=== PATIENT | male | born 1980 | race Caucasian/White ===

== ENCOUNTER 2024-06-26 18:13 | Inpatient (IN) | payer MEDICARE, SELFPAY ==
[2024-06-26] VITALS (9 sets, daily range): BP systolic 119–153; BP diastolic 82–104; BMI 36.4; BMI 38.0
--- NOTE | 2024-06-26 14:38 | ED.GENMED ---
ED Provider Triage
<Jeovany Roman PA-C - Last Filed: 06/26/24 14:39>
-
Patient seen by provider in Triage?: Seen in Triage
Attestation: A medical screening examination has been initiated by a qualified medical provider. Based on the assessment performed at this time, it has been determined that an emergent medical condition may exist and the patient has been informed
that further medical evaluation and possible additional diagnostic testing may be needed.
HPI: 43-year-old male presents in referral from family doctor for evaluation of abdominal pain and jaundice. He admits to heavy alcohol use for years stopped drinking 2 to 3 days ago but notes yellow discoloration of the skin starting about a week
ago. He notes diffuse abdominal pain with vomiting. No prior history of alcohol withdrawal.
Patient is jaundiced at triage with tachycardia and hypertension. Concern for cirrhosis versus liver failure versus alcohol withdrawal
Start with labs including CBC CMP lipase PT/INR. Given diffuse abdominal pain and tenderness on exam CT ordered with IV contrast
GENERAL: Alert , in no apparent distress
EYE: No visual abnormalities.
NECK: Trachea midline
ENT: No visible abnormalities.
LUNGS: No acute respiratory distress
NEUROLOGICAL: Alert and oriented
SKIN: Skin intact. No visible changes.
MUSCULOSKELETAL: Moving extremities normally
PSYCH: Normal and appropriate interaction.
This is a medical evaluation conducted in person to initiate diagnostic evaluation and provide initial therapeutics. Please see further documentation by the treating clinician.
History of Present Illness
<Jeovany Roman PA-C - Last Filed: 06/26/24 14:39>
General
Chief Complaint: Abdominal Symptoms
Time Seen by Provider: 06/26/24 15:47
<Masoud Parr MD - Last Filed: 06/26/24 19:09>
General
Source: patient
Exam Limitations: none
History of Present Illness
History of Present Illness:
43-year-old male long history of EtOH use. Drinks 2 bottles of hard liquor per week. Last drink 2 days ago. Complaining of upper abdominal pain nausea vomiting that started about a week ago. Started noticing he was jaundiced. No fever no back
pain no other complaints. Symptoms are moderate in nature
Past History
<Jeovany Roman PA-C - Last Filed: 06/26/24 14:39>
Past History
ED Past Medical History: Psychiatric (suicide attempt 2022) and Other (Stiff person syndrome)
ED Past Surgical History: None
Social History
Tobacco: Non-smoker
Alcohol: Daily
Personal: Single
Living: with family
Employment: Not employed
Family History
Family History: Negative Diabetes, Hypertension or CAD
Review of Systems
<Masoud Parr MD - Last Filed: 06/26/24 19:09>
Review of Systems
All Other Systems: Not applicable
Constitutional: Denies fever or chills
Respiratory: Reports no symptoms
Cardiac: Reports no symptoms
Phy Exam
<Masoud Parr MD - Last Filed: 06/26/24 19:09>
Physical Exam
Physical Exam:
GENERAL: Alert and oriented.. Slightly slow to answer questions. Appears moderately ill.
EYE: Orbits normal. Icteric
NECK: Supple
ENT: Pharynx without erythema
CARDIAC: Mildly tachycardic and regular no murmur
LUNGS: Clear breath sounds,normal
ABDOMEN: Soft, epigastric and right upper quadrant tenderness. No rebound or guarding no mass or hernia. Increased liver edge.
NEUROLOGICAL: Alert and oriented , grossly non-focal
SKIN: Warm and dry, jaundice. No petechia or purpura
MUSCULOSKELETAL: No edema,no deformity.Good color
PSYCH: Normal and appropriate interaction.
Course
<Jeovany Roman PA-C - Last Filed: 06/26/24 14:39>
Orders/Labs/Results
Orders:
Orders
06/26/24 14:50
Alcohol Urgent
Complete Blood Count/With Diff Urgent
Comprehensive Metabolic Panel Urgent
Lipase Urgent
PTT Urgent
Prothrombin Time Urgent
06/26/24 15:56
Add On- LAB Urgent
Tests Added?: etoh level
CT Abd/Pel (IV only)-DH only Urgent
Comment:
Reason For Exam: Upper abdominal pain. Elevated LFTs
06/26/24 16:19
Ammonia Urgent
06/26/24 17:00
0.9% Sodium Chloride 1000 ml [Nss] 1,000 ml Mvi, Adult [Multivitamin] 10 ml Thiamine Injection 100 mg IV Wide Open mls/hr
06/26/24 17:09
Urine Drug Abuse Screen Routine
Date Specimen was Collected: 06/26/24
Time Specimen was Collected: 17:11
06/26/24 17:45
Admit/Transfer Patient As Directed
Co-Sign Provider:
Level of Care: Inpatient admission
Assign to:: Medical/Surgical
Physician / Group: Priscilla Leiva - hospitalists
Diagnosis: Acute alcoholic hepatitis, elevated LFTs, jaundice
Reason for Hospitalization: Acute alcoholic hepatitis, elevated LFTs, jaundice - CT imaging, possible
paracentesis
Expected length of stay greater than two midnights?: Yes
ELOS- Estimated Length of Stay in days: 3
I certify the patient meets the requirements for IP care: Yes
PRN Pain Medication Management As Directed
May give lesser potent ordered pain med per pt: Yes
preference::
Protocol:: Medication orders for pain may be administered in a
manner that supports deferring to patient preference
when the pt is:
- Requesting an ordered lesser potent pain medication.
Least to most potent pain medications are defined
as: acetaminophen < NSAID < tramadol < opioids
(morphine, oxycodone, hydromorphone).
- Requesting a lesser dose of the same medication IF
ORDERED.
- Requesting a less intrusive route of administration
if both routes are prescribed by the provider (PO <
IV).
06/26/24 17:46
Code Status As Directed
Resuscitation Status: Full Code
06/27/24 06:00
Complete Blood Count/No Diff IN AM
Comprehensive Metabolic Panel IN AM
Prothrombin Time IN AM
Abnormal Lab Results
06/26/24
14:50
RBC 3.17 L 10^6/uL
(4.70-6.10)
Hgb 11.0 L g/dL
(13.0-18.0)
Hct 33.8 L %
(39.0-52.0)
MCV 106.6 H fL
(80.0-94.0)
MCH 34.7 H pg
(27.0-31.0)
MCHC 32.5 L g/dL
(33.0-37.0)
RDW 21.7 H %
(11.5-14.5)
Absolute Lymphs (auto) 0.9 L 10^3/uL
(1.2-3.4)
Absolute Monos (auto) 0.7 H 10^3/uL
(0.1-0.6)
Lymphocytes % 14.4 L %
(20.5-51.1)
Monocytes % 10.9 H %
(1.7-9.3)
PT 14.9 H Sec
(11.4-14.6)
BUN 6 L mg/dl
(9-20)
Creatinine 0.5 L mg/dL
(0.7-1.3)
Glucose 117 H mg/dl
(70-99)
Calcium 8.3 L mg/dl
(8.4-10.2)
Total Bilirubin 12.6 H mg/dl
(0.2-1.3)
AST 566 H* U/L
(17-59)
ALT 153 H U/L
(0-50)
Alkaline Phosphatase 548 H U/L
(38-126)
Total Protein 9.0 H g/dl
(6.3-8.2)
Lipase 328 H U/L
(23-300)
06/26/24 14:50
06/26/24 14:50
Vital Signs
Initial and Last Documented VS:
Initial Vital Signs
Temp Pulse Resp BP Pulse Ox
98.5 F 111 18 153/104 97
06/26/24 14:35 06/26/24 14:35 06/26/24 14:35 06/26/24 14:35 06/26/24 14:35
Last Documented Vital Signs
Temp Pulse Resp BP Pulse Ox
98.5 F 91 24 137/89 96
06/26/24 14:35 06/26/24 18:15 06/26/24 18:15 06/26/24 18:00 06/26/24 18:15
<Masoud Parr MD - Last Filed: 06/26/24 19:09>
Orders/Labs/Results
Orders:
Orders
06/26/24 14:50
Alcohol Urgent
Complete Blood Count/With Diff Urgent
Comprehensive Metabolic Panel Urgent
Lipase Urgent
PTT Urgent
Prothrombin Time Urgent
06/26/24 15:56
Add On- LAB Urgent
Tests Added?: etoh level
CT Abd/Pel (IV only)-DH only Urgent
Comment:
Reason For Exam: Upper abdominal pain. Elevated LFTs
06/26/24 16:19
Ammonia Urgent
06/26/24 17:00
0.9% Sodium Chloride 1000 ml [Nss] 1,000 ml Mvi, Adult [Multivitamin] 10 ml Thiamine Injection 100 mg IV Wide Open mls/hr
06/26/24 17:09
Urine Drug Abuse Screen Routine
Date Specimen was Collected: 06/26/24
Time Specimen was Collected: 17:11
06/26/24 17:45
Admit/Transfer Patient As Directed
Co-Sign Provider:
Level of Care: Inpatient admission
Assign to:: Medical/Surgical
Physician / Group: Priscilla Leiva - hospitalists
Diagnosis: Acute alcoholic hepatitis, elevated LFTs, jaundice
Reason for Hospitalization: Acute alcoholic hepatitis, elevated LFTs, jaundice - CT imaging, possible
paracentesis
Expected length of stay greater than two midnights?: Yes
ELOS- Estimated Length of Stay in days: 3
I certify the patient meets the requirements for IP care: Yes
PRN Pain Medication Management As Directed
May give lesser potent ordered pain med per pt: Yes
preference::
Protocol:: Medication orders for pain may be administered in a
manner that supports deferring to patient preference
when the pt is:
- Requesting an ordered lesser potent pain medication.
Least to most potent pain medications are defined
as: acetaminophen < NSAID < tramadol < opioids
(morphine, oxycodone, hydromorphone).
- Requesting a lesser dose of the same medication IF
ORDERED.
- Requesting a less intrusive route of administration
if both routes are prescribed by the provider (PO <
IV).
06/26/24 17:46
Code Status As Directed
Resuscitation Status: Full Code
06/27/24 06:00
Complete Blood Count/No Diff IN AM
Comprehensive Metabolic Panel IN AM
Prothrombin Time IN AM
Abnormal Lab Results
06/26/24
14:50
RBC 3.17 L 10^6/uL
(4.70-6.10)
Hgb 11.0 L g/dL
(13.0-18.0)
Hct 33.8 L %
(39.0-52.0)
MCV 106.6 H fL
(80.0-94.0)
MCH 34.7 H pg
(27.0-31.0)
MCHC 32.5 L g/dL
(33.0-37.0)
RDW 21.7 H %
(11.5-14.5)
Absolute Lymphs (auto) 0.9 L 10^3/uL
(1.2-3.4)
Absolute Monos (auto) 0.7 H 10^3/uL
(0.1-0.6)
Lymphocytes % 14.4 L %
(20.5-51.1)
Monocytes % 10.9 H %
(1.7-9.3)
PT 14.9 H Sec
(11.4-14.6)
BUN 6 L mg/dl
(9-20)
Creatinine 0.5 L mg/dL
(0.7-1.3)
Glucose 117 H mg/dl
(70-99)
Calcium 8.3 L mg/dl
(8.4-10.2)
Total Bilirubin 12.6 H mg/dl
(0.2-1.3)
AST 566 H* U/L
(17-59)
ALT 153 H U/L
(0-50)
Alkaline Phosphatase 548 H U/L
(38-126)
Total Protein 9.0 H g/dl
(6.3-8.2)
Lipase 328 H U/L
(23-300)
06/26/24 14:50
06/26/24 14:50
Vital Signs
Initial and Last Documented VS:
Initial Vital Signs
Temp Pulse Resp BP Pulse Ox
98.5 F 111 18 153/104 97
06/26/24 14:35 06/26/24 14:35 06/26/24 14:35 06/26/24 14:35 06/26/24 14:35
Last Documented Vital Signs
Temp Pulse Resp BP Pulse Ox
98.5 F 91 24 137/89 96
06/26/24 14:35 06/26/24 18:15 06/26/24 18:15 06/26/24 18:00 06/26/24 18:15
<Masoud Parr MD - Last Filed: 06/26/24 19:09>
MDM/Problems Addressed
Differential Diagnosis Includes:
Patient with hepatitis/jaundice. Likely related to alcohol use although would consider common duct stone neoplasm cholangitis. Workup in progress. GI and hospitalist contacted
<Masoud Parr MD - Last Filed: 06/26/24 19:09>
*Radiology
Radiology exam reviewed: radiology read reviewed (Possible cholecystitis)
*Pulse Oximetry
Patient hypoxic: no
*Critical Care Note
Total Time (30-74mins, 75-104mins- exclusive of procedures): Not Applicable
Data Reviewed
Review of Other/Old Records Reveals: Labs, Records and Testing
ED Attending Note
<Jeovany Roman PA-C - Last Filed: 06/26/24 14:39>
-
Portions of this chart may have been created with voice recognition software.� Occasional wrong word or��sound alike� substitutions may have occurred due to the inherent limitations of voice recognition software.
Discharge Plan
Departure
Patient Disposition: Admit
Date of Disposition: 06/26/24
Time of Disposition: 16:02
Presentation/result/management discussed w/ accepting MD/DO: Gastroenterology
Discharge Problem:
Possible acute cholecystitis/cholangitis, History of chronic alcohol use
Interventions
Interventions:
*Risk Screen - Suicide Last Done: 06/26/24 14:35
*General Assessment Last Done: 06/26/24 15:53
*Neglect/Abuse Screening Last Done: 06/26/24 14:35
ZB-Xbgsbe-[id number] Assessment Last Done: 06/26/24 15:53
[2024-06-26 15:05] LABS: % Basophils 0.5 % (0-2); % Eosinophils 0.2 % (0-6); % Immature Granulocytes 0.5 % (0-0.5); % Lymphocytes 14.4 % (20.5-51.1); % Monocytes 10.9 % (1.7-9.3); % Neutrophils 73.5 % (42.2-75.2); Absolute Lymphocytes 0.9 10^3/uL (1.2-3.4); Absolute Monocytes 0.7 10^3/uL (0.1-0.6); Absolute Neutrophils 4.8 10^3/uL (1.4-6.5); Hematocrit 33.8 % (39.0-52.0); Mean Corp Hgb Conc. 32.5 g/dL (33.0-37.0); Mean Corpuscular Hgb 34.7 pg (27.0-31.0); Mean Corpuscular Volume 106.6 fL (80.0-94.0); Mean Platelet Volume 10.3 fL (7.4-10.4); Nucleated Red Blood Cells % 0 % (-); Platelet Count 193 10^3/uL (130-400); Red Blood Cell Count 3.17 10^6/uL (4.70-6.10); Red Cell Dist. Width 21.7 % (11.5-14.5); White Blood Cell Count 6.5 10^3/uL (4.8-10.8)
[2024-06-26 15:15] LABS: INR 1.14; PT 14.9 Sec (11.4-14.6)
[2024-06-26 15:16] LABS: APTT 34.5 Sec (23.4-35.0)
[2024-06-26 15:20] LABS: ALT (SGPT) 153 U/L (0-50); AST (SGOT) 566 U/L (17-59); Albumin 3.7 g/dl (3.5-5.0); Alkaline Phosphatase 548 U/L (38-126); Blood Urea Nitrogen 6 mg/dl (9-20); Calcium 8.3 mg/dl (8.4-10.2); Carbon Dioxide 23 mmol/L (22-30); Chloride 104 mmol/L (98-107); Glucose 117 mg/dl (70-99); Lipase 328 U/L (23-300); Potassium 4.2 mmol/L (3.5-5.1); Sodium 139 mmol/L (135-145); Total Bilirubin 12.6 mg/dl (0.2-1.3); eGFR > 60.00
--- NOTE | 2024-06-26 16:30 | CON.GI ---
Addendum entered and electronically signed by Karolina Corrales DO 06/26/24 17:47:
Patient seen and examined independently of HARRIETT. I agree with her note with my additions below
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 Patient states on Wednesday he started feeling diffuse abdominal cramping and is mildly tender in the epigastric
area, some mild nausea no vomiting. He does have chronic diarrhea and moves his bowels roughly 4 times a day without any blood. No prior GI workup and has never seen GI.
He does admit to being an alcoholic. He denies any prior DUIs or rehab for alcohol. On admission he is jaundice with a total bilirubin of 12.6, AST 566, ALT 153, alkaline phosphatase 548, lipase 328, platelets 193, hemoglobin 11.
He is tender in the epigastric area. Denies ever having GI bleeding or withdrawal. No prior ascites or paracentesis. Was never told he had any liver disease. No family history of liver disease. New medication is Lyrica that was started 3 weeks
ago.
# Jaundice with some abdominal pain and mixed cholestatic and hepatocellular injury with an elevated total bilirubin of 12.6
--- Biliary pathology versus alcoholic hepatitis versus other
--His alkaline phosphatase is pretty elevated, which is less characteristic of alcoholic hepatitis
-- No fevers or chills, no leukocytosis
-- Need to rule out obstructive jaundice with imaging, a CT has been ordered which could help with looking at his pancreas as well but often times ultrasound can be more sensitive for the biliary tree
-- Lipase is not 3 times normal, mildly elevated at 300. No prior pancreatitis
--Patient's DF is low with no role of any steroids and biliary obstruction needs to be ruled out first
# Alcohol abuse -discussed alcohol cessation with patient and his mother. No family history of liver disease
--Good nutrition as long as no biliary source was found
--Monitor for DTs
--Thiamine folate, once daily PPI
Addendum entered and electronically signed by HARRIETT Mcclellan 06/26/24 17:37:
with low DF no role for steroids cont to trend labs
Original Note:
Consultation
-
Date/Time Consultation Requested: 06/26/24- 1600
Date/Time Consultation Performed: 06/26/24 1630
Requesting Provider: Masoud Parr MD
Performing Provider: HARRIETT Zhu, Karolina Corrales DO
Reason for Consultation: jaundice
Medical History
Chief Complaint / HPI
Chief Complaint: jaundice
History of Present Illness:
Pt is a 43yo with hx ETOH abuse(current use 2-3 bottle wine/whiskey weekly for several years ), depression, stiff man syndrome, prior suicide attempt, [place] arrest with [place] presents to ER with upper abdominal pain with nausea,vomiting and
jaundice. On admission noted with hbg 11 with MCV 106.6, Platelets 193, INR 1.14, bili 12.6, AST 566, ALT 153, alk phos 548, lipase 328. CT pending.
In review with patient noted with onset of jaundice about 1 week ago. He also complaints of diffuse abdominal pain with some inability to eat. He denies dysphagia, GERD, hematemesis, constipation or rectal bleeding. He does admits to chronic
diarrhea. No hx EGD or colonoscopy in past. + occasional NSAID use. No hx hepatitis, prior liver problems, old tattoos, or IVDA. Admits to new medication with Pregalin started about 3 weeks ago.
Past Medical History
Past Medical History: Arrhythmias ([place] with [place] ), Psychiatric (suicide attempt, stiff person syndrome, depression) and Other (ETOH abuse)
Social History
Tobacco: Former Smoker (quit 2011 )
Alcohol: Daily (2-3 bottle weekly wine/whiskey )
Drug: Marijuana (occasional )
Living: Alone
Employment: Disabled
Family History
Family History: Other (family hx alcoholism in multiple family members )
Allergies / Home Medications
Allergy/AdvReac Type Severity Reaction Status Date / Time
No Known Allergies Allergy Verified 09/20/18 08:44
�Medication �Instructions �Recorded
immune glob,gamma (IgG) 10 50 g IV .[id number] 08/21/22
%-gly-IgA over 50 mcg/mL injection Neurological Condition
solution (Gammagard Liquid)
diazepam 5 mg tablet 5 mg PO QID PRN leg spasms 06/26/24
pregabalin 75 mg capsule 75 mg PO DAILY 06/26/24
Review of Systems
-
History Source: Patient and Family (mother at bedside )
Constitutional: Reports Weight Gain (few lbs ) and Other (new onset jaundice )
Respiratory: Reports Trouble Breathing (at times )
Cardiac: Reports No Symptoms
Abdomen/GI: Reports Abdominal Pain, Nausea, Vomiting and Diarrhea (chronic )
: Reports No Symptoms
Musculoskeletal: Reports No Symptoms
Skin: Reports No Symptoms
Neurological: Reports Weakness
Endocrine: Reports No Symptoms
Hematologic/Lymphatic: Reports No Symptoms
Vital Signs
Temp Pulse Resp BP Pulse Ox
98.5 F 104 18 137/91 97
06/26/24 14:35 06/26/24 16:00 06/26/24 16:00 06/26/24 16:00 06/26/24 16:00
Physical Exam
Exam
General: Other (some distress with abdominalpain )
HEENT: Other (jaundice )
Respiratory: Clear
Cardiac: Other (tachy)
GI: Soft, Tender (diffuse ) and Distended
Musculoskeletal: No Clubbing and No Cyanosis
Skin: Warm and Dry
Neuro: Awake, Alert and AO x 3
Psych: Calm
Results
WBC 6.5 10^3/uL (4.8-10.8) 06/26/24 14:50
Hgb 11.0 g/dL (13.0-18.0) L 06/26/24 14:50
Hct 33.8 % (39.0-52.0) L 06/26/24 14:50
MCV 106.6 fL (80.0-94.0) H 06/26/24 14:50
Plt Count 193 10^3/uL (130-400) 06/26/24 14:50
Absolute Neuts (auto) 4.8 10^3/uL (1.4-6.5) 06/26/24 14:50
PT 14.9 Sec (11.4-14.6) H 06/26/24 14:50
INR 1.14 06/26/24 14:50
APTT 34.5 Sec (23.4-35.0) 06/26/24 14:50
Sodium 139 mmol/L (135-145) 06/26/24 14:50
Potassium 4.2 mmol/L (3.5-5.1) 06/26/24 14:50
Chloride 104 mmol/L (98-107) 06/26/24 14:50
Carbon Dioxide 23 mmol/L (22-30) 06/26/24 14:50
BUN 6 mg/dl (9-20) L 06/26/24 14:50
Creatinine 0.5 mg/dL (0.7-1.3) L 06/26/24 14:50
Calcium 8.3 mg/dl (8.4-10.2) L 06/26/24 14:50
Total Bilirubin 12.6 mg/dl (0.2-1.3) H 06/26/24 14:50
AST 566 U/L (17-59) H* 06/26/24 14:50
ALT 153 U/L (0-50) H 06/26/24 14:50
Alkaline Phosphatase 548 U/L (38-126) H 06/26/24 14:50
Lipase 328 U/L (23-300) H 06/26/24 14:50
Diagnostic Image Results:
2/3 CT pending
Prior GI Procedures:
EGD: none
Colonoscopy: none
Assessment / Plan
-
Pt is a 43yo with hx ETOH abuse(current use 2-3 bottle wine/whiskey weekly for several years ), depression, stiff man syndrome, prior suicide attempt, [place] arrest with Vim[place] overdose presents to ER with upper abdominal pain with nausea,vomiting and
jaundice. On admission noted with hbg 11 with MCV 106.6, Platelets 193, INR 1.14, bili 12.6, AST 566, ALT 153, alk phos 548, lipase 328. .He does admits to chronic diarrhea. No hx EGD or colonoscopy in past. + occasional NSAID use. No hx
hepatitis, prior liver problems, old tattoos, or IVDA. Admits to new medication with Pregalin started about [address]
-diffuse abdominal pain with concern for ETOH hepatitis/pancreatitis
-new onset jaundice with elevated LFT's
-elevated lipase
-ETOH abuse
-chronic diarrhea
-macrocytic anemia
other med problems:
-depression
-stiff man syndrome new to Pregabalin
-prior suicide attempt
-[place] with [place]im[place]
PLAN:
Etiology of symptoms with concern for ETOH hepatitis/pancreatitis vs other
DF 21.3 with control of [address] to eval liver and pancreas
ETOH abstinence
monitor for withdrawal
updated family at bedside
PPI daily
thiamine and folate
-
-
Thank you for consultation and allowing me to participate in the patient's care. Please call the generation mechanic helper GI physician during the after hours with any questions or concerns.
[2024-06-26 16:33] LABS: Alcohol 13 mg/dl
[2024-06-26 16:40] LABS: Ammonia 27 umol/L (9-30)
--- NOTE | 2024-06-26 17:02 | HPS.HSE ---
Family Physician
-
Family Physician:
Chief Complaint
-
Jaundice
History of Present Illness
43 y/o M hx of ETOH abuse (2-3 bottles of whiskey weekly for several years), depression, stiff man syndrome, prior suicide attempt, [place] arrest with [place]im[place] presents to ER with upper abdominal pain with distention, nausea/vomiting and noticing
jaundice. Patient reports symptoms noted more urgently this past weekend with his last drink being Wednesday but overall symptoms began 1 week prior. No dysphagia, GERD or clinical bleeding. No prior scopes. Just recently started on Lyrica for Stiff
man syndrome. Recently moved to [facility] from [place] (previously living with his mother).
Medical History
Past Medical History
Past Medical History: Reports Other (ETOH abuse (2-3 bottles of whiskey weekly for several years), depression, stiff man syndrome, prior suicide attempt, [place] arrest with Vimpat overdose)
Past Surgical History: Reports None
Social History
Tobacco: Former Smoker (quit 2011)
Alcohol: Daily (2-3 bottle weekly wine/whiskey)
Drug: Marijuana
Living: Alone
Employment: Disabled
Family History
Family History: Not pertinent
Allergies / Home Medications
Allergies reflects when Allergies were last updated in [facility].
Home Medications with original date entered in [facility]
Allergy/Medication List:
Allergies
Allergy/AdvReac Type Severity Reaction Status Date / Time
No Known Allergies Allergy Verified 09/20/18 08:44
Home Medications
immune glob,gamma (IgG) 10 %-gly-IgA over 50 mcg/mL injection solution (Gammagard Liquid) 50 g IV .[id number] Neurological Condition 08/21/22
diazepam 5 mg tablet 5 mg PO QID PRN leg spasms 06/26/24
pregabalin 75 mg capsule 75 mg PO DAILY 06/26/24
Review of Systems
-
A 12 point ROS was completed and negative except as noted: Yes
Physical Exam
Vital Signs
Vital Signs
Temp Pulse Resp BP Pulse Ox
98.5 F 104 18 137/91 97
06/26/24 14:35 06/26/24 16:00 06/26/24 16:00 06/26/24 16:00 06/26/24 16:00
Physical Exam
General: Appears in Distress (from abd pain) and Appears Chronically Ill
HEENT: NormoCephalic and Other (scleral icterus)
Respiratory: Clear; No Wheezes or Rales
Cardiac: S1/S2, Regular Rhythm and Tachycardia
GI: Tender (diffusely) and Distended
Skin: Jaundice
Neuro: AO x 3
Psych: Calm
Laboratory Results
-
06/26/24 14:50
06/26/24 14:50
Laboratory Results
PT 14.9 Sec (11.4-14.6) H 06/26/24 14:50
INR 1.14 06/26/24 14:50
APTT 34.5 Sec (23.4-35.0) 06/26/24 14:50
Total Bilirubin 12.6 mg/dl (0.2-1.3) H 06/26/24 14:50
AST 566 U/L (17-59) H* 06/26/24 14:50
ALT 153 U/L (0-50) H 06/26/24 14:50
Alkaline Phosphatase 548 U/L (38-126) H 06/26/24 14:50
Lipase 328 U/L (23-300) H 06/26/24 14:50
Data Reviewed
-
Lab Data: Labs Reviewed by me
Impression/Plan
-
Assessment:
Acute alcoholic hepatitis (new onset jaundice with elevated LFTs)
Possible pancreatitis with elevated Lipase
- DF <32; no role for steroids
- check daily CMP, PT/INR
- Ammonia level normal
- await CT scan
- daily PPI
- GI following
Chronic alcohol abuse
- MSAS protocol to monitor for withdrawal
- MV/Folate/Thiamine
- CM/BC[facility]ES evaluation for resources to quit and encouragement of abstinence
- Nutrition eval; monitor mag/phos for refeeding
Hx of Stiff person syndrome
- followed by Dr. Castro [facility]
- on Gammagard outpatient - due this week, likely will have to be deferred
- continue QID prn Diazepam and Lyrica
Chronic macrocytic anemia
- check anemia indices
Chronic diarrhea
Depression
Prior hx of suicide attempt
Hx of [place] arrest from vimpat overdose 2022
DVT ppx: [place] Heparin
Code: Full
[2024-06-26] MEDS: MULTIVITAMIN 1011 ML IV (17:07)
[2024-06-26] MEDS: MULTIVITAMIN 1011 MG IV (17:07)
[2024-06-26] MEDS: ZOSYN 50 IV (20:05)
[2024-06-26] MEDS: LR 1000 IV (20:06)
[2024-06-26 20:45] LABS: Lactic Acid 1.5 mmol/L (0.7-2.0)
[2024-06-26 20:51] LABS: Amphetamines Negative (Negative); Barbiturates Negative (Negative); Benzodiazepines Positive (Negative); Buprenorphine Negative (Negative); Cocaine Negative (Negative); Marijuana Negative (Negative); Methadone Negative (Negative); Methamphetamines Negative (Negative); Opiates Negative (Negative); Phencyclidine Negative (Negative); Tricyclic Antidepressants Negative (Negative)
[2024-06-26 21:13] LABS: Fentanyl, Urine Negative (Negative)
[2024-06-26 21:18] LABS: Urine Albumin 2+ (Neg - Trace); Urine Bilirubin 3+ (Negative); Urine Character Clear (Clear); Urine Color Amber; Urine Glucose Negative (Negative); Urine Ketone Negative (Negative); Urine Leukocyte 1+ (Negative); Urine Nitrite Positive (Negative); Urine Occult Blood Negative (Negative); Urine Specific Gravity 1.005 (<1.030); Urine Urobilinogen 4+ (Neg - 1+)
[2024-06-26 21:27] LABS: Urine Squamous Cell 0-2 /LPF (Few)
[2024-06-26 21:29] LABS: Urine Mucus Few
[2024-06-26 21:31] LABS: Urine Bacteria Few (Negative); Urine Red Blood Cell 0-2 /HPF (0-2); Urine White Cell 0-2 /HPF (0-5)
[2024-06-26] MEDS: HEPARIN 5000 UNITS SC (21:33)
[2024-06-26] MEDS: THIAMINE INJECTION 200 MG IV (21:34)
[2024-06-26] MEDS: ULTRAM 50 MG PO (21:35)
[2024-06-27] VITALS (13 sets, daily range): BP systolic 120–154; BP diastolic 78–98; BMI 38.0; BMI 36.0
[2024-06-27] MEDS: ZOSYN 50 IV ×3 (01:30→11:33)
[2024-06-27 06:22] LABS: Magnesium 1.6 mg/dl (1.6-2.3); Phosphorus 3.1 mg/dl (2.5-4.5)
[2024-06-27] MEDS: LR 1000 IV (09:03)
[2024-06-27] MEDS: PROTONIX IV 40 MG IV (09:06)
[2024-06-27] MEDS: NSS (PRESERVATIVE FREE) 10 ML IV (09:07)
[2024-06-27] MEDS: THIAMINE INJECTION 200 MG IV ×2 (09:07→19:50)
[2024-06-27] MEDS: FOLVITE 1 MG PO (09:07)
[2024-06-27] MEDS: LYRICA 75 MG PO (09:08)
[2024-06-27] MEDS: HEPARIN 5000 UNITS SC ×2 (09:10→19:50)
[2024-06-27 09:29] LABS: Hematocrit 30.1 % (39.0-52.0); Hemoglobin 9.8 g/dL (13.0-18.0); Mean Corp Hgb Conc. 32.6 g/dL (33.0-37.0); Mean Corpuscular Hgb 35.4 pg (27.0-31.0); Mean Corpuscular Volume 108.7 fL (80.0-94.0); Mean Platelet Volume 10.3 fL (7.4-10.4); Platelet Count 166 10^3/uL (130-400); Red Blood Cell Count 2.77 10^6/uL (4.70-6.10); Red Cell Dist. Width 21.7 % (11.5-14.5); White Blood Cell Count 6.8 10^3/uL (4.8-10.8)
[2024-06-27 09:39] LABS: INR 1.21; PT 15.6 Sec (11.4-14.6)
[2024-06-27] MEDS: VALIUM 5 MG PO (09:46)
[2024-06-27 09:48] LABS: ALT (SGPT) 124 U/L (0-50); AST (SGOT) 461 U/L (17-59); Albumin 3.1 g/dl (3.5-5.0); Alkaline Phosphatase 475 U/L (38-126); Blood Urea Nitrogen 5 mg/dl (9-20); Calcium 7.9 mg/dl (8.4-10.2); Carbon Dioxide 25 mmol/L (22-30); Chloride 104 mmol/L (98-107); Direct Bilirubin 12.6 mg/dl (0.0-0.4); Estimated Creatinine Clearance > 125 ml/min; Glucose 86 mg/dl (70-99); Potassium 3.4 mmol/L (3.5-5.1); Sodium 139 mmol/L (135-145); Total Bilirubin 14.3 mg/dl (0.2-1.3); Total Protein 7.7 g/dl (6.3-8.2); eGFR > 60.00
--- NOTE | 2024-06-27 10:44 | CON.GS ---
Medical History
-
Chief Complaint: Abdominal pain
History of Present Illness:
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 Mr. Ledesma states that he noticed worsening jaundice over the past week prompting a conversation with his PCP who
referred him to the ED for further evaluation and management. He reports vague generalized abdominal discomfort. He denies any specific epigastric or RUQ abdominal pain. No association of abdominal discomfort with eating, though he states he has
had a poor appetite. Few episodes of nausea and vomiting bloody emesis. No fevers or chills. Of note, he drinks at least 3 bottles of whiskey a week. He has had increased alcohol intake of recent. He self medicates using alcohol for lower motor
extremity pain related to SPS. He denies any prior attacks of similar abdominal pain or discomfort. He denies any prior knowledge of biliary or stone disease. Previous issues with seizures and alcohol abuse. Previously noted to have mildly
elevated LFTs. He denies any prior diagnosis of cirrhosis and does not follow with a GI physician.
Past Medical History
Past Medical History: Other (SPS, medical overdose)
Past Surgical History: None
Social History
Tobacco: Former Smoker
Alcohol: Chronic Alcoholic
Drug: Marijuana
Living: Alone
Family History
Family History: Other (EtOH abuse and liver issues)
Allergies / Home Medications
Allergy/AdvReac Type Severity Reaction Status Date / Time
No Known Allergies Allergy Verified 09/20/18 08:44
�Medication �Instructions �Recorded �Confirmed �Type
immune glob,gamma (IgG) 10 50 g IV USEASDIRECTD Neurological 08/21/22 06/27/24 History
%-gly-IgA over 50 mcg/mL injection Condition
solution (Gammagard Liquid)
diazepam 5 mg tablet 5 mg PO QIDPRN PRN leg spasms 06/26/24 06/27/24 History
pregabalin 75 mg capsule 75 mg PO DAILY 06/26/24 06/27/24 History
Review of Systems
-
A 10 point review of systems was completed, and was negative except as per HPI.
Physical Exam
Vital Signs
Temp Pulse Resp BP Pulse Ox
98.8 F 75 20 135/78 97
06/27/24 09:27 06/27/24 09:27 06/27/24 09:27 06/27/24 09:27 06/27/24 09:27
06/26/24 06/27/24 06/28/24
06:59 06:59 06:59
Actual Weight 120 kg
Body Mass Index (BMI) 38.0
Lab Results
06/27/24 09:20
06/27/24 09:20
WBC 6.8 10^3/uL (4.8-10.8) 06/27/24 09:20
Hgb 9.8 g/dL (13.0-18.0) L 06/27/24 09:20
Hct 30.1 % (39.0-52.0) L 06/27/24 09:20
Plt Count 166 10^3/uL (130-400) 06/27/24 09:20
Abs Immat Gran (auto) 0.0 10^3/uL (0-0.05) 06/26/24 14:50
Neutrophils % 73.5 % (42.2-75.2) 06/26/24 14:50
Physical Exam
General: Well Developed, Well Nourished and No Apparent Distress
HEENT: Scleral Icterus
Respiratory: Non Labored Respirations
Cardiac: Regular Rhythm
GI: Soft, Non Distended, Tender (Minimal generalized abdominal discomfort), Obese and Other (Negative Avilez sign)
Musculoskeletal: No Edema
Skin: Warm, Dry and Jaundice
Neuro: Nonfocal/Grossly Intact
Data Reviewed
-
CT Scan: Image Personally Visualized and interpreted and Report Reviewed by me
Ultrasound: Image Personally Visualized and interpreted and Report Reviewed by me
Labs: Labs Reviewed by me
Assessment / Plan
-
Patient is a 43 yo M p/w abdominal discomfort and markedly elevated bilirubin and LFTs in the setting of acute on chronic EtOH abuse
Most likely related to a primary intrahepatic process, likely EtOH related. There does appear to be wall thickening and pericholecystic edema appreciated on his CT scan, however, this may be secondary/reactive to an adjacent liver process. No
clear evidence of cholelithiasis or gallbladder wall distention. No evidence of stones or biliary ductal dilation on ultrasound. GI consult noted. MRI pending; may be helpful to confirm no gallstones and rule out ductal pathology. No plans or
indication for cholecystectomy at this time. All questions answered.
-- No plans or indication for cholecystectomy at this time.
-- GI consult noted, further work-up and management per GI, MRI pending
-- Will continue to follow peripherally
--- NOTE | 2024-06-27 10:45 | W.PN.HOSP.TC ---
Today's Communication/Plan
-
NPO/IVF/Zosyn pending MRI/MRCP results
GI/GS following
trend labs
replete K+
Assessment / Plan
Assessment / Plan
Assessment:
Acute alcoholic hepatitis (new onset jaundice/hyperbilirubinemia with elevated LFTs)
elevated Lipase likely reactive, no evidence of pancreatitis
- DF <32; no role for steroids
- check daily CMP, PT/INR
- Ammonia level normal
- CT scan without evidence of pancreatitis
- daily PPI
- GI following
Acute cholecystitis on CT
- no evidence on US
- ? Local edema from hepatitis vs true cholecystitis
- check MRI/MRCP to rule out biliary pathology
- empiric IVF, Zosyn, NPO
- GS consulted as well
Chronic alcohol abuse
- MSAS protocol to monitor for withdrawal
- MV/Folate/Thiamine
- CM/BCARES evaluation for resources to quit and encouragement of abstinence
- Nutrition eval; monitor mag/phos for refeeding
Hypokalemia
- replete via IV
Hx of Stiff person syndrome
- followed by Dr. Castro Neurology
- on Gammagard outpatient - due this week, likely will have to be deferred
- continue QID prn Diazepam and Lyrica
Chronic macrocytic anemia
- check anemia indices
Chronic diarrhea
Depression
Prior hx of suicide attempt
Hx of [place] arrest from vimpat overdose 2022
DVT ppx: SC Heparin
Code: Full
Anticipated Discharge: > 48 hours
Subjective/Interval History
-
Date of Service: June 27, 2024
reports ongoing abd pain, mostly near RUQ
denies fever/chills
Objective Data
-
Labs:
Laboratory Results
06/27/24 06/27/24
09:19 09:20
WBC 6.8
Hgb 9.8 L
Hct 30.1 L
Plt Count 166
PT 15.6 H
INR 1.21
Sodium 139
Potassium 3.4 L
Chloride 104
Carbon Dioxide 25
BUN 5 L
Creatinine 0.6 L
Glucose 86
Calcium 7.9 L
Total Bilirubin 14.3 H
AST 461 H
ALT 124 H
Alkaline Phosphatase 475 H
Vital Signs:
Vital Signs
Temp Pulse Resp BP Pulse Ox
98.8 F 75 20 135/78 97
06/27/24 09:27 06/27/24 09:27 06/27/24 09:27 06/27/24 09:27 06/27/24 09:27
Physical Exam
-
General: No Apparent Distress
HEENT: Normocephalic and Atraumatic
Respiratory: Negative Wheezes
Cardiac: Regular Rhythm and S1/S2
GI: Tender (RUQ pain) and Distended
Genito-urinary: No Costovertebral Tender
Neuro: AO x 3
Psych: Calm
Data Reviewed
-
Total Time Spent with Patient (in minutes): 45
Labs: Labs Reviewed by me
[2024-06-27] MEDS: KCL 270 MEQ IV (11:32)
[2024-06-27] MEDS: ULTRAM 50 MG PO (11:37)
[2024-06-27 12:00] LABS: Iron 152 ug/dl (49-181)
[2024-06-27 12:10] LABS: Percent Saturation 86 % (20-50); Total Iron Binding Capacity 175 ug/dl (261-462)
[2024-06-27 13:09] LABS: Folate 8.4 ng/ml (2.76-20); Vitamin B12 976 pg/ml (239-931)
--- NOTE | 2024-06-27 15:46 | W.PN.GI.CBS2 ---
Addendum entered and electronically signed by Dane Rivers MD 06/27/24 16:54:
Patient seen and examined, agree with nurse practitioner note. Patient overall feeling better, decreased abdominal pain, no vomiting overnight. MRI reviewed, some gallbladder wall thickening the likely more reactive, clinically doubt
cholecystitis, no CBD stone. On exam he has no significant tenderness, though was icteric and jaundiced. Current constellation of symptoms and lab pattern consistent with severe acute alcohol hepatitis, with some improvement in LFTs, bilirubin and
INR slightly higher with discriminant function of 26.3 today. Clinically again doubt cholecystitis. At this point we will continue supportive care, trend labs including INR and LFTs. We again discussed along with his mother continued alcohol
abstinence. His ferritin and iron percent saturation were markedly elevated though likely more secondary to alcohol, will need repeat in the future and likely hemochromatosis testing. If his discriminant function continues to climb may consider
prednisolone in the future.
Original Note:
Today's Communication / Plan
-
Etiology of symptoms with concern for ETOH hepatitis/pancreatitis but also noted with CT with enhancement and thickening of GB wall with acute cholecystitis--
follow up US with only mild GB thickening
MRI completed results pending
bili higher today with AST/ALT lower
2/3 DF 21.3 with repeat today 26.3 with control of 13
ETOH abstinence
elevated ferritin may be reactive with ETOH use -- will need OP hemochromatosis testing
monitor for withdrawal
updated family at bedside
PPI daily
thiamine and folate
remains NPO t/c trial of clears pending surgical plan
reviewed with mother for good nutrition on discharge
Assessment / Plan
-
Pt is a 43yo with hx ETOH abuse(current use 2-3 bottle wine/whiskey weekly for several years ), depression, stiff man syndrome, prior suicide attempt, [place] arrest with Vimpat overdose presents to ER with upper abdominal pain with nausea,vomiting and
jaundice. On admission noted with hbg 11 with MCV 106.6, Platelets 193, INR 1.14, bili 12.6, AST 566, ALT 153, alk phos 548, lipase 328. .He does admits to chronic diarrhea. No hx EGD or colonoscopy in past. + occasional NSAID use. No hx
hepatitis, prior liver problems, old tattoos, or IVDA. Admits to new medication with Pregalin started about 3 weeks ago.
06/26/24 CT a/p with IV contrast --Enhanced and thickened gallbladder wall concerning for acute cholecystitis. Abdominal ultrasound recommended. Severe hepatic fatty infiltration.
06/27/24 US abdomen - limited -- Hepatomegaly with diffuse fatty liver. No findings to confirm cholelithiasis. No mild gallbladder wall thickening. Difficult to determine sonographic Avilez's sign.
06/27/24 MRI pending to be done
-diffuse abdominal pain with concern for ETOH hepatitis/pancreatitis
-CT with concern for thickening GBW possible acute cholecystitis
-new onset jaundice with elevated LFT's
-elevated lipase -pancreas unremarkable on CT
-ETOH abuse
-chronic diarrhea
-macrocytic anemia
-elevated ferritin
other med problems:
-depression
-stiff man syndrome new to Pregabalin
-prior suicide attempt
-[place] arrest with vimpat overdose
-fatty liver per CT
PLAN:
Etiology of symptoms with concern for ETOH hepatitis/pancreatitis but also noted with CT with enhancement and thickening of GB wall with acute cholecystitis--
follow up US with only mild GB thickening
MRI completed results pending
bili higher today with AST/ALT lower
06/26 DF 21.3 with repeat today 26.3 with control of 13
ETOH abstinence
elevated ferritin may be reactive with ETOH use -- will need OP hemochromatosis testing
monitor for withdrawal
updated family at bedside
PPI daily
thiamine and folate
remains NPO t/c trial of clears pending surgical plan
reviewed with mother for good nutrition on discharge
Subjective
Subjective
Date of Service: June 27, 2024
NPO for MRI, still with pain but some improvement
Objective
Data Reviewed
Laboratory Data:
Laboratory Results
06/27/24 09:20
06/27/24 09:20
Laboratory Results
PT 15.6 Sec (11.4-14.6) H 06/27/24 09:19
INR 1.21 06/27/24 09:19
APTT 34.5 Sec (23.4-35.0) 06/26/24 14:50
Phosphorus 3.1 mg/dl (2.5-4.5) 06/27/24 05:46
Magnesium 1.6 mg/dl (1.6-2.3) 06/27/24 05:46
Total Bilirubin 14.3 mg/dl (0.2-1.3) H 06/27/24 09:20
AST 461 U/L (17-59) H 06/27/24 09:20
ALT 124 U/L (0-50) H 06/27/24 09:20
Alkaline Phosphatase 475 U/L (38-126) H 06/27/24 09:20
Lipase 328 U/L (23-300) H 06/26/24 14:50
Vital Signs and I&O:
Vital Signs
Temp Pulse Resp BP Pulse Ox
98.2 F 75 20 135/78 97
06/27/24 11:26 06/27/24 09:27 06/27/24 09:27 06/27/24 09:27 06/27/24 09:27
Physical Exam
Physical Exam
HEENT: Other (jaundice )
Cardiology: Normal Sinus Rhythm
Pulmonary: Clear
GI: Soft, Distended and Tender (mild )
Extremities: No Edema
Neuro: Non Focal
[2024-06-27] MEDS: MAGNESIUM SULFATE 50 IV (16:20)
--- NOTE | 2024-06-27 18:41 | PTCARENOTE ---
Patient admitted from the ER into room 403-02. Vital signs stable. Oriented to room, use of call pagan and TV/bed controls. Patient verbalizes understanding of teaching. Resting in bed at this time with Mother at bedside.
[2024-06-28 03:24] VITALS: BP 136/85
[2024-06-28 06:00] VITALS: BMI 36.3
--- NOTE | 2024-06-28 06:15 | W.PN.GI.CBS2 ---
Addendum entered and electronically signed by HARRIETT Mcclellan 06/28/24 07:56:
repeat labs with DF 32 will repeat in AM to see if steroid indicated for worsening ETOH hepatitis.
Original Note:
Today's Communication / Plan
-
Please see assessment and plan for details.
Assessment / Plan
-
1. Elevated LFTs: Consistent with severe acute alcoholic hepatitis, doubt cholecystitis, likely reactive gallbladder wall thickening. His discriminant function was mildly elevated yesterday though still below 32. Will continue observation and
supportive care for now, await morning labs. If discriminant function still climbing may consider prednisolone, though we will hold for now. His ferritin and iron percent saturation markedly elevated, likely more reactionary from alcohol, though
will repeat along with hemochromatosis evaluation as an outpatient.
Subjective
Subjective
Date of Service: June 28, 2024
Patient feeling okay, stomach feels better, tolerated diet without difficulty, no vomiting, no bowel movements.
Objective
Data Reviewed
Laboratory Data:
Laboratory Results
PT 15.6 Sec (11.4-14.6) H 06/27/24 09:19
INR 1.21 06/27/24 09:19
APTT 34.5 Sec (23.4-35.0) 06/26/24 14:50
Phosphorus 3.1 mg/dl (2.5-4.5) 06/27/24 05:46
Magnesium 1.6 mg/dl (1.6-2.3) 06/27/24 05:46
Total Bilirubin 14.3 mg/dl (0.2-1.3) H 06/27/24 09:20
AST 461 U/L (17-59) H 06/27/24 09:20
ALT 124 U/L (0-50) H 06/27/24 09:20
Alkaline Phosphatase 475 U/L (38-126) H 06/27/24 09:20
Lipase 328 U/L (23-300) H 06/26/24 14:50
Vital Signs and I&O:
Vital Signs
Temp Pulse Resp BP Pulse Ox
99.1 F 67 16 136/85 98
06/28/24 04:00 06/28/24 04:00 06/28/24 04:00 06/28/24 03:24 06/28/24 03:24
I&O
06/26/24 06/27/24 06/28/24
06:59 06:59 06:59
Intake Total 480 / 480
Balance 480 / 480
Physical Exam
Physical Exam
General: NAD
Abdomen: normal bowel sounds, mildly distended though soft, no tenderness, no masses or bruits, no ascites
[2024-06-28 06:49] LABS: Hematocrit 30.2 % (39.0-52.0); Mean Corp Hgb Conc. 33.1 g/dL (33.0-37.0); Mean Corpuscular Hgb 36.1 pg (27.0-31.0); Mean Platelet Volume 10.6 fL (7.4-10.4); Platelet Count 182 10^3/uL (130-400); Red Blood Cell Count 2.77 10^6/uL (4.70-6.10)
[2024-06-28 06:54] LABS: INR 1.26; PT 16.1 Sec (11.4-14.6)
[2024-06-28 07:19] LABS: ALT (SGPT) 112 U/L (0-50); AST (SGOT) 402 U/L (17-59); Albumin 2.9 g/dl (3.5-5.0); Alkaline Phosphatase 478 U/L (38-126); Blood Urea Nitrogen 5 mg/dl (9-20); Calcium 8.4 mg/dl (8.4-10.2); Carbon Dioxide 23 mmol/L (22-30); Chloride 103 mmol/L (98-107); Estimated Creatinine Clearance > 125 ml/min; Glucose 77 mg/dl (70-99); Magnesium 1.9 mg/dl (1.6-2.3); Phosphorus 2.9 mg/dl (2.5-4.5); Potassium 3.9 mmol/L (3.5-5.1); Sodium 135 mmol/L (135-145); Total Bilirubin 18.2 mg/dl (0.2-1.3); Total Protein 7.2 g/dl (6.3-8.2); eGFR > 60.00
[2024-06-28] MEDS: FOLVITE 1 MG PO (08:23)
[2024-06-28] MEDS: LYRICA 75 MG PO (08:23)
[2024-06-28] MEDS: NSS (PRESERVATIVE FREE) 10 ML IV (08:24)
[2024-06-28] MEDS: HEPARIN 5000 UNITS SC ×2 (08:24→20:08)
[2024-06-28] MEDS: THIAMINE INJECTION 200 MG IV ×2 (08:25→20:08)
[2024-06-28] MEDS: PROTONIX IV 40 MG IV (08:25)
[2024-06-28 09:08] VITALS: BP 138/79
--- NOTE | 2024-06-28 09:49 | W.PN.GS2 ---
Today's Communication / Plan
-
Mgmt of acute hepatitis per Hospitalist and GI
GS will s/o
Assessment / Plan
-
Patient is a 43 yo M p/w abdominal discomfort and markedly elevated bilirubin and LFTs in the setting of acute on chronic EtOH abuse
Most likely related to a primary intrahepatic process, likely EtOH related. There does appear to be wall thickening and pericholecystic edema appreciated on his CT scan, however, this may be secondary/reactive to an adjacent liver process. No
clear evidence of cholelithiasis or gallbladder wall distention. No evidence of stones or biliary ductal dilation on ultrasound. MRI negative for stones. No plans or indication for cholecystectomy at this time. All questions answered.
Offered Curatorial Specialist support, pt refused
Recommended psych consult for depression, pt refused
-- No plans or indication for cholecystectomy at this time.
-- GI consult noted, further work-up and management per GI
-- pls call with ?s
Subjective Data
-
Date of Service: June 28, 2024
AFVSS, denies abd pain, matty diet
Objective Data
-
Intake and Output
06/27/24 06/28/24 06/29/24
06:59 06:59 06:59
Intake Total 960 / 960
Output Total 775 / 775
Balance 185 / 185
Intake:
Oral fluids 960 / 960
Output:
Urine, Voided 775 / 775
Other:
Number of unmeasured voidings 1
Vital Signs
Temp Pulse Resp BP Pulse Ox
98.8 F 68 18 138/79 98
06/28/24 09:08 06/28/24 09:08 06/28/24 09:08 06/28/24 09:08 06/28/24 09:08
Lab Results
06/28/24 06:28
06/28/24 06:28
Calcium 8.4 mg/dl (8.4-10.2) 06/28/24 06:28
Phosphorus 2.9 mg/dl (2.5-4.5) 06/28/24 06:28
Magnesium 1.9 mg/dl (1.6-2.3) 06/28/24 06:28
Total Bilirubin 18.2 mg/dl (0.2-1.3) H* 06/28/24 06:28
Direct Bilirubin 12.6 mg/dl (0.0-0.4) H 06/27/24 09:20
AST 402 U/L (17-59) H 06/28/24 06:28
ALT 112 U/L (0-50) H 06/28/24 06:28
Alkaline Phosphatase 478 U/L (38-126) H 06/28/24 06:28
Total Protein 7.2 g/dl (6.3-8.2) 06/28/24 06:28
Albumin 2.9 g/dl (3.5-5.0) L 06/28/24 06:28
Physical Exam
-
Gen: NAD, jaundice, scleral icterus
Abd: protuberant, soft, nt
Psych: flat affect, depressed mood
Patient has a irizarry catheter: No
Patient has a central line: No
--- NOTE | 2024-06-28 11:19 | W.PN.HOSP.TC ---
Today's Communication/Plan
-
Monitor vital signs see plan
Monitor LFTs, PT/INR; will need to see if steroids are indicated
clears for now
Assessment / Plan
Assessment / Plan
Assessment:
Acute alcoholic hepatitis (new onset jaundice/hyperbilirubinemia with elevated LFTs)
elevated Lipase likely reactive, no evidence of pancreatitis
- DF 32; repeat in a.m. to see if steroid is indicated
- check daily CMP, PT/INR
- Ammonia level normal
- CT scan without evidence of pancreatitis
- daily PPI
- GI following
Acute cholecystitis on CT
- no evidence on US
- ? Local edema from hepatitis vs true cholecystitis
MRI noted, does not appear to have acute cholecystitis. Evaluated by general surgery.
- empiric IVF, Zosyn
Clears
Chronic alcohol abuse
- MSAS protocol to monitor for withdrawal
- MV/Folate/Thiamine
- CM/BCARES evaluation for resources to quit and encouragement of abstinence
- Nutrition eval; monitor mag/phos for refeeding
Hypokalemia
Improved
Hx of Stiff person syndrome
- followed by Dr. Castro Neurology
- on Gammagard outpatient - due this week, likely will have to be deferred
- continue QID prn Diazepam and Lyrica
Chronic macrocytic anemia
Chronic diarrhea
Depression
Prior hx of suicide attempt
Denies any suicidal ideation
Hx of [place] arrest from vimpat overdose 2022
DVT ppx: SC Heparin
Code: Full
General: No Apparent Distress
HEENT: Normocephalic and Atraumatic
Respiratory: Negative Wheezes
Cardiac: Regular Rhythm and S1/S2
GI: Distended
Genito-urinary: No Costovertebral Tender
Neuro: AO x 3
Psych: Calm
Anticipated Discharge: 24 - 48 hours
Subjective/Interval History
-
Date of Service: June 28, 2024
denies pain
Objective Data
-
Labs:
Laboratory Results
06/28/24
06:28
WBC 7.0
Hgb 10.0 L
Hct 30.2 L
Plt Count 182
PT 16.1 H
INR 1.26
Sodium 135
Potassium 3.9
Chloride 103
Carbon Dioxide 23
BUN 5 L
Creatinine 0.5 L
Glucose 77
Calcium 8.4
Total Bilirubin 18.2 H*
AST 402 H
ALT 112 H
Alkaline Phosphatase 478 H
Vital Signs:
Vital Signs
Temp Pulse Resp BP Pulse Ox
98.8 F 68 18 138/79 98
06/28/24 09:08 06/28/24 09:08 06/28/24 09:08 06/28/24 09:08 06/28/24 09:08
I&O
06/27/24 06/28/24 06/29/24
06:59 06:59 06:59
Intake Total 960 / 960
Output Total 775 / 775
Balance 185 / 185
[2024-06-28 12:20] VITALS: BP 145/87
[2024-06-28 16:16] VITALS: BP 125/79
--- NOTE | 2024-06-28 17:11 | CM ---
Alert awake oriented patient who lives with his mom Jamia and sometime in [place]. He is independent in driving and in all activities of daily living.He has [facility] infusion in [place] at [place].Offered VN he declined need.His mom will drive him home at
discharge. [facility] saw pt . Pt given out pt recourse for alcohol rehab for [facility] and [place] . Pt declined inpatient rehab.
Infusion VN with [facility] . No SNF hx.
Pharmacy [facility]
PCP DR Castro
PLAN Home Declined VN
[2024-06-28 23:26] VITALS: BP 136/87
[2024-06-29 04:14] LABS: % Basophils 0.7 % (0-2); % Eosinophils 0.7 % (0-6); % Immature Granulocytes 0.7 % (0-0.5); % Lymphocytes 11.2 % (20.5-51.1); % Neutrophils 76.7 % (42.2-75.2); Absolute Basophils 0.1 10^3/uL (0-0.2); Absolute Eosinophils 0.1 10^3/uL (0-0.7); Absolute Immature Granulocytes 0.1 10^3/uL (0-0.05); Absolute Lymphocytes 0.8 10^3/uL (1.2-3.4); Absolute Monocytes 0.8 10^3/uL (0.1-0.6); Absolute Neutrophils 5.8 10^3/uL (1.4-6.5); Hematocrit 30.7 % (39.0-52.0); Hemoglobin 9.8 g/dL (13.0-18.0); Mean Corp Hgb Conc. 31.9 g/dL (33.0-37.0); Mean Corpuscular Hgb 35.1 pg (27.0-31.0); Nucleated Red Blood Cells % 0.4 % (-); Platelet Count 198 10^3/uL (130-400); Red Blood Cell Count 2.79 10^6/uL (4.70-6.10); White Blood Cell Count 7.5 10^3/uL (4.8-10.8)
[2024-06-29 04:24] LABS: PT 16.7 Sec (11.4-14.6)
[2024-06-29 04:40] LABS: ALT (SGPT) 93 U/L (0-50); AST (SGOT) 282 U/L (17-59); Albumin 2.7 g/dl (3.5-5.0); Alkaline Phosphatase 453 U/L (38-126); Blood Urea Nitrogen 5 mg/dl (9-20); Calcium 8.4 mg/dl (8.4-10.2); Carbon Dioxide 24 mmol/L (22-30); Chloride 101 mmol/L (98-107); Estimated Creatinine Clearance > 125 ml/min; Glucose 85 mg/dl (70-99); Magnesium 1.9 mg/dl (1.6-2.3); Phosphorus 2.8 mg/dl (2.5-4.5); Potassium 3.7 mmol/L (3.5-5.1); Sodium 134 mmol/L (135-145); Total Protein 6.8 g/dl (6.3-8.2); eGFR > 60.00
--- NOTE | 2024-06-29 05:56 | W.PN.GI.CBS2 ---
Today's Communication / Plan
-
Please see assessment and plan for details.
Assessment / Plan
-
1. Elevated LFTs: Consistent with severe acute alcoholic hepatitis. His INR and bilirubin are slightly higher, though other LFTs improved, discriminant function 30.7. Given bilirubin and INR trending up will observe another day to ensure
stability and not developing acute liver failure. His ferritin and iron percent saturation markedly elevated, likely more reactionary from alcohol, though will repeat along with hemochromatosis evaluation as an outpatient.
Subjective
Subjective
Date of Service: June 29, 2024
Patient feeling okay, no abdominal pain, nausea, vomiting, fever or chills. Tolerating diet without difficulty.
Objective
Data Reviewed
Laboratory Data:
Laboratory Results
06/29/24 03:48
06/29/24 03:48
Laboratory Results
PT 16.7 Sec (11.4-14.6) H 06/29/24 03:48
INR 1.30 06/29/24 03:48
APTT 34.5 Sec (23.4-35.0) 06/26/24 14:50
Phosphorus 2.8 mg/dl (2.5-4.5) 06/29/24 03:48
Magnesium 1.9 mg/dl (1.6-2.3) 06/29/24 03:48
Total Bilirubin 21.0 mg/dl (0.2-1.3) H* 06/29/24 03:48
AST 282 U/L (17-59) H 06/29/24 03:48
ALT 93 U/L (0-50) H 06/29/24 03:48
Alkaline Phosphatase 453 U/L (38-126) H 06/29/24 03:48
Lipase 328 U/L (23-300) H 06/26/24 14:50
Vital Signs and I&O:
Vital Signs
Temp Pulse Resp BP Pulse Ox
98.5 F 81 18 136/87 95
06/28/24 23:26 06/28/24 23:26 06/28/24 23:26 06/28/24 23:26 06/28/24 23:26
I&O
06/27/24 06/28/24 06/29/24
06:59 06:59 06:59
Intake Total 960 / 960 480 / 480
Output Total 775 / 775
Balance 185 / 185 480 / 480
Physical Exam
Physical Exam
General: NAD
Abdomen: normal bowel sounds, soft, no tenderness, no masses or bruits, no ascites
[2024-06-29 07:13] VITALS: BP 146/86
[2024-06-29] MEDS: HEPARIN 5000 UNITS SC ×2 (09:25→20:12)
[2024-06-29] MEDS: FOLVITE 1 MG PO (09:26)
[2024-06-29] MEDS: NSS (PRESERVATIVE FREE) 10 ML IV (09:26)
[2024-06-29] MEDS: THIAMINE INJECTION 200 MG IV (09:26)
[2024-06-29] MEDS: PROTONIX IV 40 MG IV (09:26)
[2024-06-29] MEDS: LYRICA 75 MG PO (09:26)
--- NOTE | 2024-06-29 12:24 | W.PN.HOSP.TC ---
Today's Communication/Plan
-
Monitor vitals
See plan
Monitor LFTs, bili and INR
GI following
Assessment / Plan
Assessment / Plan
Assessment:
Acute alcoholic hepatitis (new onset jaundice/hyperbilirubinemia with elevated LFTs)
elevated Lipase likely reactive, no evidence of pancreatitis
- DF high; repeat in a.m. to see if steroid is indicated
- check daily CMP, PT/INR
- Ammonia level normal
- CT scan without evidence of pancreatitis
- daily PPI
- GI following
Acute cholecystitis on CT
- no evidence on US
- ? Local edema from hepatitis vs true cholecystitis
MRI noted, does not appear to have acute cholecystitis. Evaluated by general surgery.
DC further abx
low fat diet
Chronic alcohol abuse
- MSAS protocol to monitor for withdrawal
- MV/Folate/Thiamine
- CM/BCARES evaluation for resources to quit and encouragement of abstinence
- Nutrition eval; monitor mag/phos for refeeding
Hyponatremia
Monitor
Hypokalemia
Improved
Hx of Stiff person syndrome
- followed by Dr. Castro Neurology
- on Gammagard outpatient - due this week, likely will have to be deferred
- continue QID prn Diazepam and Lyrica
Chronic macrocytic anemia
Chronic diarrhea
Depression
Prior hx of suicide attempt
Denies any suicidal ideation
Hx of [place] arrest from vimpat overdose 2022
DVT ppx: SC Heparin
Code: Full
General: No Apparent Distress
HEENT: Normocephalic and Atraumatic
Respiratory: Negative Wheezes
Cardiac: Regular Rhythm and S1/S2
GI: Distended
Genito-urinary: No Costovertebral Tender
Neuro: AO x 3
Psych: Calm
Anticipated Discharge: 24 - 48 hours
Subjective/Interval History
-
Date of Service: June 29, 2024
denies pain
Objective Data
-
Labs:
Laboratory Results
06/29/24
03:48
WBC 7.5
Hgb 9.8 L
Hct 30.7 L
Plt Count 198
PT 16.7 H
INR 1.30
Sodium 134 L
Potassium 3.7
Chloride 101
Carbon Dioxide 24
BUN 5 L
Creatinine 0.5 L
Glucose 85
Calcium 8.4
Total Bilirubin 21.0 H*
AST 282 H
ALT 93 H
Alkaline Phosphatase 453 H
Vital Signs:
Vital Signs
Temp Pulse Resp BP Pulse Ox
99.1 F 71 18 146/86 98
06/29/24 07:13 06/29/24 07:13 06/29/24 07:13 06/29/24 07:13 06/29/24 07:13
I&O
06/28/24 06/29/24 06/30/24
06:59 06:59 06:59
Intake Total 960 / 960 480 / 480
Output Total 775 / 775
Balance 185 / 185 480 / 480
[2024-06-29 15:18] VITALS: BP 137/84
--- NOTE | 2024-06-29 15:45 | PTOTSP ---
Patient modified independent with his cane for transfers and ambulation. No skilled PT needs, at functional baseline. Will sign off.
[2024-06-29] MEDS: ULTRAM 50 MG PO (18:54)
[2024-06-29 23:22] VITALS: BP 118/63
[2024-06-30 03:56] LABS: % Basophils 0.9 % (0-2); % Eosinophils 0.9 % (0-6); % Immature Granulocytes 0.8 % (0-0.5); % Lymphocytes 14.1 % (20.5-51.1); % Monocytes 11.3 % (1.7-9.3); Absolute Basophils 0.1 10^3/uL (0-0.2); Absolute Eosinophils 0.1 10^3/uL (0-0.7); Absolute Immature Granulocytes 0.1 10^3/uL (0-0.05); Absolute Lymphocytes 0.9 10^3/uL (1.2-3.4); Absolute Monocytes 0.7 10^3/uL (0.1-0.6); Absolute Neutrophils 4.6 10^3/uL (1.4-6.5); Hematocrit 31.4 % (39.0-52.0); Hemoglobin 10.1 g/dL (13.0-18.0); Mean Corp Hgb Conc. 32.2 g/dL (33.0-37.0); Mean Corpuscular Hgb 35.4 pg (27.0-31.0); Mean Corpuscular Volume 110.2 fL (80.0-94.0); Nucleated Red Blood Cells % 0.5 % (-); Platelet Count 218 10^3/uL (130-400); Red Blood Cell Count 2.85 10^6/uL (4.70-6.10); Red Cell Dist. Width 21.2 % (11.5-14.5); White Blood Cell Count 6.4 10^3/uL (4.8-10.8)
[2024-06-30 04:04] LABS: INR 1.25; PT 16.3 Sec (11.4-14.6)
[2024-06-30 04:24] LABS: ALT (SGPT) 83 U/L (0-50); AST (SGOT) 244 U/L (17-59); Albumin 2.7 g/dl (3.5-5.0); Alkaline Phosphatase 447 U/L (38-126); Blood Urea Nitrogen 6 mg/dl (9-20); Calcium 8.6 mg/dl (8.4-10.2); Carbon Dioxide 24 mmol/L (22-30); Chloride 105 mmol/L (98-107); Estimated Creatinine Clearance > 125 ml/min; Glucose 94 mg/dl (70-99); Phosphorus 3.2 mg/dl (2.5-4.5); Potassium 3.7 mmol/L (3.5-5.1); Sodium 137 mmol/L (135-145); Total Bilirubin 20.7 mg/dl (0.2-1.3); Total Protein 7.1 g/dl (6.3-8.2); eGFR > 60.00
[2024-06-30 07:25] VITALS: BP 132/77
[2024-06-30] MEDS: LYRICA 75 MG PO (07:56)
[2024-06-30] MEDS: HEPARIN 5000 UNITS SC (07:56)
[2024-06-30] MEDS: PROTONIX 40 MG PO (07:56)
[2024-06-30] MEDS: FOLVITE 1 MG PO (07:56)
[2024-06-30 09:45] VITALS: BP 133/86; PULSE 86
--- NOTE | 2024-06-30 10:31 | CM ---
[facility] saw pt . Pt given out pt recourse for [place] rehab for [facility] and [place] .
Pt declined inpatient rehab.
GI involved.
Offered VN he declined.
PLAN Home declined VN
--- NOTE | 2024-06-30 10:42 | W.PN.HOSP.TC ---
Addendum entered and electronically signed by Rogelio Us MD 06/30/24 12:04:
Discussed with GI, okay for discharge
Time of discharge 37 minutes
Original Note:
Today's Communication/Plan
-
Monitor vital signs see plan
Awaiting GI decision regarding disposition
Continue to monitor LFTs, INR
will need to see GI/hepatology outpatient
Assessment / Plan
Assessment / Plan
Assessment:
Acute alcoholic hepatitis (new onset jaundice/hyperbilirubinemia with elevated LFTs)
elevated Lipase likely reactive, no evidence of pancreatitis
- DF high; defer to GI regarding steroid
- check daily CMP, PT/INR. Awaiting gastroenterology decision today regarding disposition.
- Ammonia level normal
- CT scan without evidence of pancreatitis
- daily PPI
- GI following
Acute cholecystitis on CT
- no evidence on US
- ? Local edema from hepatitis vs true cholecystitis
MRI noted, does not appear to have acute cholecystitis. Evaluated by general surgery.
DC further abx
low fat diet
Chronic alcohol abuse
- MSAS protocol to monitor for withdrawal
- MV/Folate/Thiamine
- CM/BCARES evaluation for resources to quit and encouragement of abstinence
- Nutrition eval; monitor mag/phos for refeeding
Hyponatremia
Monitor
Hypokalemia
Improved
Hx of Stiff person syndrome
- followed by Dr. Castro Neurology
- on Gammagard outpatient - due this week, likely will have to be deferred
- continue QID prn Diazepam and Lyrica
Chronic macrocytic anemia
Chronic diarrhea
Depression
Prior hx of suicide attempt
Denies any suicidal ideation
Hx of [place] arrest from vimpat overdose 2022
DVT ppx: SC Heparin
Code: Full
General: No Apparent Distress
HEENT: Normocephalic and Atraumatic
Respiratory: Negative Wheezes
Cardiac: Regular Rhythm and S1/S2
GI: Distended
Genito-urinary: No Costovertebral Tender
Neuro: AO x 3
Psych: Calm
Anticipated Discharge: Today
Subjective/Interval History
-
Date of Service: June 30, 2024
denies pain
Objective Data
-
Labs:
Laboratory Results
06/30/24
03:28
WBC 6.4
Hgb 10.1 L
Hct 31.4 L
Plt Count 218
PT 16.3 H
INR 1.25
Sodium 137
Potassium 3.7
Chloride 105
Carbon Dioxide 24
BUN 6 L
Creatinine 0.5 L
Glucose 94
Calcium 8.6
Total Bilirubin 20.7 H*
AST 244 H
ALT 83 H
Alkaline Phosphatase 447 H
Vital Signs:
Vital Signs
Temp Pulse Resp BP Pulse Ox
99 F 74 18 132/77 98
06/30/24 07:25 06/30/24 07:25 06/30/24 07:25 06/30/24 07:25 06/30/24 07:25
I&O
06/29/24 06/30/24 07/01/24
06:59 06:59 06:59
Intake Total 480 / 480 840 / 840 180 / 180
Balance 480 / 480 840 / 840 180 / 180
--- NOTE | 2024-06-30 11:51 | W.PN.GI.CBS2 ---
Today's Communication / Plan
-
stable
Assessment / Plan
-
Alcoholic hepatitis: stable with INR slightly decreased, he is oriented. Ok for d/c. needs alcohol abstinence
Subjective
Subjective
Date of Service: June 30, 2024
Pt oriented, no new symptoms, wants to go home
Objective
Data Reviewed
Laboratory Data:
Laboratory Results
06/30/24 03:28
06/30/24 03:28
Laboratory Results
PT 16.3 Sec (11.4-14.6) H 06/30/24 03:28
INR 1.25 06/30/24 03:28
APTT 34.5 Sec (23.4-35.0) 06/26/24 14:50
Phosphorus 3.2 mg/dl (2.5-4.5) 06/30/24 03:28
Magnesium 2.0 mg/dl (1.6-2.3) 06/30/24 03:28
Total Bilirubin 20.7 mg/dl (0.2-1.3) H* 06/30/24 03:28
AST 244 U/L (17-59) H 06/30/24 03:28
ALT 83 U/L (0-50) H 06/30/24 03:28
Alkaline Phosphatase 447 U/L (38-126) H 06/30/24 03:28
Lipase 328 U/L (23-300) H 06/26/24 14:50
Vital Signs and I&O:
Vital Signs
Temp Pulse Resp BP Pulse Ox
99 F 74 18 132/77 98
06/30/24 07:25 06/30/24 07:25 06/30/24 07:25 06/30/24 07:25 06/30/24 11:06
I&O
06/29/24 06/30/24 07/01/24
06:59 06:59 06:59
Intake Total 480 / 480 840 / 840 180 / 180
Balance 480 / 480 840 / 840 180 / 180
Physical Exam
Physical Exam
HEENT: Anicteric (icteric)
Neuro: Non Focal
--- NOTE | 2024-06-30 12:09 | CM ---
entered order for discharge.
Mc Taylor saw pt . Pt given out pt recourse for alcohol rehab for [place] and [place] locations.
Pt declined inpatient rehab.
Offered VN he declined.
Pt said his mom will drive him home.
PLAN Home declined VN
--- NOTE | 2024-06-30 12:11 | W.DCSUMMARY ---
Discharge Summary
Discharge Data
Date of Admission: 06/26/24
Date of Discharge: 06/30/24
-
Pending Results: No
Hospital Course
43-year-old male with past medical history of chronic alcohol abuse, stiff person syndrome on IVIG, depression, [place] arrest came to the hospital with elevated LFTs concerning for hepatitis. There was also initially concern for possible cholecystitis
however patient had an abdominal MRI which did not show any signs of acute cholecystitis. Patient was also eval by general surgery who had no concerns for cholecystitis. Patient symptoms thought was likely secondary to acute alcoholic hepatitis.
His LFTs and INR continue to be elevated and gastroenterology wanted to monitor this inpatient for possible need to start steroids. Over time his labs continue to improve and GI was okay with discharging patient home with close follow-up
outpatient. On discharge patient was instructed to follow-up closely for repeat labs and to follow-up with all his physicians outpatient.
Discharge Plan
-
Patient Disposition: Home (Routine Discharge)
Discharge Diagnosis/Procedures: Acute alcoholic hepatitis
Diet: As tolerated
Activity: As tolerated
Driving Restrictions: As prior to admission
Bathing Restrictions: None
Blood Work: CMP, PT/INR next week with primary care provider or gastroenterology
Activity Restrictions/Additional Instructions:
Please follow-up with primary care provider soon as possible
Referrals:
Jai Castro MD [Family Provider] - in less than 1 week
Karolina Corarles DO [Active] - (follow up with Dr. Corrales and JOCY 2-3 week with liver dysfunction, fatty liver noted on imaging, abdominal pain. Will need outpatient hemochromatosis testing with elevated ferritin noted during admission.)
Prescriptions:
New
pantoprazole 40 mg Tablet,Delayed Release (/Ec)
40 mg PO DAILY Qty: 30 0RF
folic acid 1 mg Tablet
1 mg PO DAILY Qty: 30 0RF
Continued
Gammagard Liquid 10 % solution
50 g IV USEASDIRECTD
Patient Comments:
Confirmed with outpatient infusion company RN, Jessika ([phone]). Next dose due 08/24/2022.
Rx Instructions:
Every 4 weeks, take 200g over 4 days (50g daily x 4 days every 4 weeks)
diazepam 5 mg Tablet
5 mg PO QIDPRN PRN (Reason: leg spasms)
pregabalin 75 mg Capsule
75 mg PO DAILY
Discharge Orders:
Discharge Patient (As Directed); Ordered 06/30/24
Ordered By: Rogelio Us
Discharge Date and Time
Discharge Date/Time: 06/30/24 13:51
Print Language: SWEDISH
[2024-06-30 12:29] VITALS: BP 141/73
== END 2024-06-30 13:51 | disposition home or self-care (01) | DRG 433 ==
LOC: 4 EAST ACU 18:13
PROVIDERS: Nurse Practitioner Adult Health; Physician Assistant; ADMITTING PHYSICIAN Internal Medicine; ATTENDING PHYSICIAN Internal Medicine; CONSULT PHYSICIAN Internal Medicine; EMERGENCY PHYSICIAN Emergency Medicine; FAMILY PHYSICIAN Psychiatry & Neurology Neurology; OTHER PHYSICIAN Surgery
DX: K70.10 Alcoholic hepatitis without ascites (principal); G25.82 Stiff-man syndrome; I47.20 Ventricular tachycardia, unspecified; Z87.891 Personal history of nicotine dependence; Z91.51 Personal history of suicidal behavior; F10.10 Alcohol abuse, uncomplicated; F32.A Depression, unspecified; F41.9 Anxiety disorder, unspecified; G89.29 Other chronic pain; D53.9 Nutritional anemia, unspecified; I10 Essential (primary) hypertension; Z82.49 Family history of ischemic heart disease and other diseases of the circulatory system; K52.9 Noninfective gastroenteritis and colitis, unspecified
CPT/HCPCS: 74177; 74183; 76705; 80053; 80306; 80307; 81003; 81015; 82077; 82140; 82248; 82607; 82728; 82746; 83540; 83550; 83605; 83690; 83735; 84100; 85025; 85027; 85610; 85730; 96374; 97161; 97165; 99285; A9575; Q9967

== ENCOUNTER 2025-02-14 12:08 | Inpatient (IN) | payer MEDICARE, SELFPAY ==
[2025-02-14] VITALS (9 sets, daily range): BP systolic 113–140; BP diastolic 67–94; BMI 35.3
--- NOTE | 2025-02-14 07:49 | ED.GENMED ---
History of Present Illness
General
Chief Complaint: Abdominal Pain
Source: patient, records and family (Mother)
Exam Limitations: none
Time Seen by Provider: 02/14/25 07:41
Nursing documentation reviewed up to this point in time: agreed with
History of Present Illness
History of Present Illness:
44-year-old male with past medical history of hypertension, alcohol use presents to the emergency room with his mother for evaluation of jaundice and abdominal discomfort. Patient reports that he is a heavy drinker�he reports that he will drink 1-2
bottles of liquor daily usually 3-5 times a week. He reports that his last drink was a few days ago. He comes to the emergency room today for evaluation of jaundice that he says has been progressive over the past week. He also reports that he has
had some left upper abdominal pain over the past 2 to 3 days. He has had some nausea no vomiting. He says he has had some dark urine as well. He denies any change in his bowels. He denies any fever or chills. He was admitted with similar
symptoms earlier this year attributed to alcoholic hepatitis.
Past History
Past History
ED Past Medical History: Psychiatric (suicide attempt 2022) and Other (Stiff person syndrome)
ED Past Surgical History: None
Social History
Tobacco: Non-smoker
Alcohol: Daily
Personal: Single
Living: with family
Employment: Not employed
Family History
Family History: Negative Diabetes, Hypertension or CAD
Review of Systems
Review of Systems
All Other Systems: ROS reviewed and negative except as documented in HPI and ROS
Constitutional: Denies fever
Respiratory: Denies trouble breathing
Cardiac: Denies chest pain
ABD/GI: Reports abdominal pain and nausea; Denies vomiting, diarrhea or constipated
: Reports dark urine; Denies dysuria or flank pain
Musculoskeletal: Denies neck pain or back pain
Skin: Reports other (Jaundice)
Neurological: Denies dizzy or headache
Phy Exam
Physical Exam
Physical Exam:
General: Awake, alert, oriented x3; mildly tremulous
Head: Normocephalic, atraumatic
Eyes: Conjunctiva normal, scleral icterus noted, pupils equal round reactive to light bilaterally
Throat: Airway intact, somewhat dry mucous membranes
Neck: Trachea midline, supple without meningismus
Lungs: Clear to auscultation bilaterally, no wheezing, rales, rhonchi
Heart: Tachycardia with regular rhythm, no murmurs, gallops, or rubs
Abd: Soft, mildly distended, minimally tender left upper abdomen
Neuro: Grossly intact, mild tremor
Skin: Jaundice noted, skin somewhat moist/diaphoretic
Extremities: No edema noted, good pulses throughout
Scores
Heart Failure Risk
Heart Failure Risk Score: Not Applicable
Heart Score for Chest Pain Patients
STEMI patient?: Not applicable
Withdrawal Assessment of Alcohol
Withdrawal Assessment Completed?: Yes
Nausea and Vomiting: Mild nausea with no vomiting
Tactile Disturbances: None
Tremor: Moderate, with patient's arms extended
Auditory Disturbances: Not present
Paroxysmal Sweats: Beads of sweat obvious on forehead
Visual Disturbances: Not present
Anxiety: Mild anxiety
Headache, Fullness in Head: Not present
Agitation: Moderately fidgety and restless
Orientation and clouding of sensorium: Oriented and can do serial additions
Total CIWA Score: 14
Alcohol Withdrawal Medication Recommendation: Equal to MSAS Score 5-7. Lorazepam 1mg IV or PO NOW & re-assess q2hrs
Course
Orders/Labs/Results
Orders:
Orders
02/14/25 07:42
Urinalysis Reflex To Culture Urgent
Date Specimen was Collected: 02/14/25
Time Specimen was Collected: 09:17
02/14/25 07:48
0.9% Sodium Chloride 1000 ml [Nss] 1,000 ml IV BOLUS
diazePAM [Valium Injection] 5 mg IV NOW STA
US Abdomen Complete/Upper Urgent
Comment:
Reason For Exam: jaundice, abd pain
02/14/25 07:55
Thiamine Injection 100 mg IV NOW STA
02/14/25 07:56
Electrocardiogram (*1) Urgent
Reason for Study: Abdominal Pain
EKG- Treatment ONCE
02/14/25 08:02
Acetaminophen Urgent
Alcohol Urgent
Complete Blood Count/With Diff Urgent
Comprehensive Metabolic Panel Urgent
Lipase Urgent
Prothrombin Time Urgent
Salicylate Urgent
02/14/25 08:56
Potassium Chloride [KCl] 40 meq PO NOW STA
Potassium Chloride [KCl] 40 meq 0.9% Sodium Chloride 250 ml [Nss] 250 ml IV NOW
02/14/25 09:00
FOLic ACID [Folvite] 1 mg 0.9% Sodium Chloride 50 ml [Nss] 50 ml IV ONCE
02/14/25 09:59
Potassium Chloride [KCl] 40 meq 0.9% Sodium Chloride 250 ml [Nss] 250 ml IV NOW
Abnormal Lab Results
02/14/25
08:02
WBC 3.9 L 10^3/uL
(4.8-10.8)
RBC 3.21 L 10^6/uL
(4.70-6.10)
Hgb 9.5 L g/dL
(13.0-18.0)
Hct 25.7 L %
(39.0-52.0)
RDW 25.3 H %
(11.5-14.5)
Absolute Lymphs (auto) 0.7 L 10^3/uL
(1.2-3.4)
Immature Gran % 0.8 H %
(0-0.5)
Lymphocytes % 16.9 L %
(20.5-51.1)
Monocytes % 12.5 H %
(1.7-9.3)
PT 21.9 H Sec
(11.4-14.6)
Potassium 3.0 L mmol/L
(3.5-5.1)
BUN 7 L mg/dl
(9-20)
Creatinine 0.6 L mg/dL
(0.7-1.3)
Glucose 120 H mg/dl
(70-99)
Calcium 8.1 L mg/dl
(8.4-10.2)
Total Bilirubin 14.3 H mg/dl
(0.2-1.3)
AST 781 H* U/L
(17-59)
ALT 243 H U/L
(0-50)
Alkaline Phosphatase 571 H U/L
(38-126)
Albumin 3.4 L g/dl
(3.5-5.0)
Salicylates < 1.0 L mg/dl
(2.0-20.0)
Acetaminophen < 10 L ug/ml
(10-30)
02/14/25 08:02
02/14/25 08:02
Vital Signs
Initial and Last Documented VS:
Initial Vital Signs
Temp Pulse Resp BP Pulse Ox
37.6 C 134 22 140/94 95
02/14/25 06:58 02/14/25 06:58 02/14/25 06:58 02/14/25 06:58 02/14/25 06:58
Last Documented Vital Signs
Temp Pulse Resp BP Pulse Ox
37.6 C 107 38 113/71 96
02/14/25 06:58 02/14/25 09:03 02/14/25 09:03 02/14/25 08:00 02/14/25 09:03
MDM/Problems Addressed
Differential Diagnosis Includes:
Alcoholic hepatitis, choledocholithiasis/cholelithiasis, malignancy
MDM/Problems Addressed:
44-year-old male with a history of heavy alcohol use presents for evaluation of abdominal discomfort and jaundice. Had an admission earlier this year with similar. He says that his last drink was a few days ago. He is tachycardic, mildly
tachypneic, mild hypertension. Physical exam as noted. Suspect likely alcoholic hepatitis and he does appear to have symptoms of mild alcohol withdrawal. Will plan to place an IV check labs including a CBC and a CMP, lipase, alcohol level, INR.
Will check upper abdominal ultrasound. Treat with Valium for alcohol withdrawal. Provide IV fluids. Thiamine and folate. Monitor closely reassess after the above.
Labs reviewed: CBC shows stable pancytopenia. CMP shows hypokalemia which we will replete. T. bili 14, AST and ALT elevated. Lipase normal. Alcohol level negative. INR is 1.85. Awaiting results of ultrasound�overall clinical suspicion is for
alcoholic hepatitis. Anticipate admission.
Chronic conditions affecting care:
Alcohol use
Acute Exacerbation and/or Progression of Chronic Illness:
Acutely hypertensive likely from alcohol withdrawal will treat withdrawal but no emergent antihypertensives indicated at this point in time
Acute Exacerbation and/or Progression of Chronic Illness: HTN
*Radiology
Radiology exam reviewed: radiology read reviewed
*Pulse Oximetry
SaO2: 97
Oxygen Mode of Delivery: Room air
Patient hypoxic: no (97%)
*EKG
Interpreted by ED Provider?: Yes
Heart Rate: 120
Rate: tachycardiac
Rhythm: sinus and sinus tachycardia
[place]: left axis deviation
Interval: normal interval
QRS Pattern: normal QRS
Ischemia: non-specific ST changes
*Critical Care Note
Total Time (30-74mins, 75-104mins- exclusive of procedures): Not Applicable
Data Reviewed
Review of Other/Old Records Reveals: Labs, Records, Progress Notes and Discharge Summary
Source: patient, records and family
Patient Management
Social determinants of health affecting care: Substance abuse (Alcohol use)
Discussion with other providers: Hospitalist (Discussed with hospitalist)
Escalation/DeEscalation of care consider admission/obs:
Admission indicated
ED Attending Note
-
Portions of this chart may have been created with voice recognition software.� Occasional wrong word or��sound alike� substitutions may have occurred due to the inherent limitations of voice recognition software.
Discharge Plan
Departure
Patient Disposition: Admit
Date of Disposition: 02/14/25
Time of Disposition: 09:26
Admit to doctor: Abbie
Presentation/result/management discussed w/ accepting MD/DO: Hospitalist
Discharge Problem:
Acute alcoholic hepatitis, Alcohol withdrawal
Prescriptions:
No Action
diazepam [Valium] 10 mg Tablet
10 mg PO QIDPRN PRN (Reason: anxiety)
Interventions
Interventions:
*Risk Screen - Suicide Last Done: 02/14/25 06:58
*General Assessment Last Done: 02/14/25 06:58
*Neglect/Abuse Screening Last Done: 02/14/25 06:58
*ED- Fall Risk Assessment Last Done: 02/14/25 07:16
*ED COVID-19 Vaccine History Last Done: 02/14/25 07:16
FR-Wjkewi-Cfkbvfbuhg Assessment Last Done: 02/14/25 07:16
Discharge Date and Time
Print Language: BERMUDIAN
[2025-02-14] MEDS: NSS 1000 IV (08:12)
[2025-02-14] MEDS: THIAMINE INJECTION 100 MG IV (08:18)
[2025-02-14] MEDS: VALIUM INJECTION 5 MG IV ×2 (08:18→12:54)
[2025-02-14 08:31] LABS: Hematocrit 25.7 % (39.0-52.0); Hemoglobin 9.5 g/dL (13.0-18.0); Mean Corp Hgb Conc. 37.0 g/dL (33.0-37.0); Mean Corpuscular Volume 80.1 fL (80.0-94.0); Nucleated Red Blood Cells % 0.8 % (-); Red Cell Dist. Width 25.3 % (11.5-14.5)
[2025-02-14 08:32] LABS: ALT (SGPT) 243 U/L (0-50); Acetaminophen < 10 ug/ml (10-30); Albumin 3.4 g/dl (3.5-5.0); Alkaline Phosphatase 571 U/L (38-126); Blood Urea Nitrogen 7 mg/dl (9-20); Calcium 8.1 mg/dl (8.4-10.2); Carbon Dioxide 28 mmol/L (22-30); Chloride 100 mmol/L (98-107); Estimated Creatinine Clearance > 125 ml/min; Glucose 120 mg/dl (70-99); Lipase 168 U/L (23-300); Potassium 3.0 mmol/L (3.5-5.1); Salicylate < 1.0 mg/dl (2.0-20.0); Sodium 137 mmol/L (135-145); Total Protein 7.1 g/dl (6.3-8.2); eGFR > 60.00
[2025-02-14 08:47] LABS: INR 1.85; PT 21.9 Sec (11.4-14.6)
[2025-02-14 08:49] LABS: AST (SGOT) 781 U/L (17-59)
[2025-02-14] MEDS: KCL 40 MEQ PO (09:07)
[2025-02-14] MEDS: FOLVITE 50.2 MG IV (09:54)
[2025-02-14 10:30] LABS: Urine Character Clear (Clear)
--- NOTE | 2025-02-14 10:34 | HPS.HSE ---
Addendum entered and electronically signed by Bro Way MD 02/14/25 13:37:
Patient with severe hypomagnesemia and hypophosphatemia
IV repletion ordered.
Addendum entered and electronically signed by Bro Way MD 02/14/25 13:07:
I saw and evaluated the patient. I reviewed the resident�s note and agree with findings and plan as documented in the resident�s note.
44-year-old male past medical history of extensive alcohol abuse with last drink over the weekend. States he had whiskey on Wednesday. Since then he stopped drinking. States is not able to sleep for the past 48 to 72 hours. States of no appetite.
States of severe dry heaves and nausea. States of abdominal discomfort. States of dark-colored urine and light-colored stools. Denies vomiting. States started noticing change in color of eyes and skin color. Patient came into the ER to get
evaluated with patient mother at bedside.
General: No Apparent Distress, obese, disheveled
HEENT: Normocephalic and Atraumatic, sclera anicteric
Respiratory: Negative Wheezes, nonlabored respiration, on room air
Cardiac: Regular Rhythm and S1/S2
GI: Soft, mild discomfort right upper quadrant side, obesity
Genito-urinary: No Costovertebral Tender
Neuro: AO x 3
Skin jaundiced
Impression
Acute alcoholic hepatitis
Severe transaminitis
Acute on chronic alcohol abuse
Normocytic anemia
Acute thrombocytopenia likely secondary to alcohol abuse suspected leading to bone marrow depression
Pancytopenia
Hypokalemia
Chronic acalculous cholecystitis
History of stiff person syndrome
Chronic diarrhea
Depression
History of V. tach arrest
Plan
Patient with elevated T. bili however lower compared to previous admissions
Check direct bili and GGT
Patient with elevated Madrey score. Await GI input regarding for prednisolone
Urine culture in lab
Afebrile. No productive cough
Start patient on IV fluids
Clears for now
Monitor for tolerance
Trend hemoglobin and platelets. Transfuse as necessary.
Replete potassium
Trend liver function
Alcohol withdrawal protocol
GI eval
DVT prophylaxis SCDs in the setting of severe thrombocytopenia for now
CODE STATUS DNR/DNI discussed with patient mother at bedside who confirmed
Long-term prognosis severely guarded
I spent a total of 85 minutes with the patient or on the floor. More than 50% of this time involved counseling and coordination of care.
Original Note:
Family Physician
<Zeinab Adrian MD, Resident - Last Filed: 02/14/25 11:44>
-
Family Physician: Jai Castro (neurology)
No PCP
Chief Complaint
<Zeinab Adrian MD, Resident - Last Filed: 02/14/25 11:44>
-
Jaundice and abdominal pain
History of Present Illness
44-year-old male with PMHx significant for history of hypertension and alcohol use disorder, depression, previous suicide attempt, stiff man syndrome presents to the emergency department with his mother for evaluation of jaundice and abdominal
discomfort.
His eyes started turning yellow and then his entire body which started about a week ago, 2 to 3 days after jaundice he started to have dark urine and incomplete sensation of emptying his bladder for the last 5 days. Both of the symptoms were
accompanied by left upper quadrant abdominal discomfort when started-which was about 5 days ago is dull, aching, intermittent about 4/10 in intensity and nonradiating but progressively worsened and has been a continuous abdominal pain with some
associated nausea and dry heaving since yesterday. He reports to have chronic diarrhea, worsening over the last 1 week, about 3-4 episodes of loose stools every day, no fresh blood or dark-colored stools per rectum. He also noticed to have
abnormal bruising for the last 1 week-he also had 2 falls in the last 1 week that resulted in the bruising.
He denies having dysuria, frequency, hesitancy, headaches, fevers, chills, blurring of vision.
He reports to have constant restlessness, he also has weakness, and he reports palpitations and dizziness with sudden position changes.
Of note his last Gammagard was in October, he does not have a primary care physician, he only sees his neurologist Dr. Jai Castro, and has not seen him since October. (Stiff man syndrome)
Medical History
<Zeinab Adrian MD, Resident - Last Filed: 02/14/25 11:44>
Past Medical History
Past Medical History: Reports Other (Depression, suicide attempt, hypertension, alcohol use disorder, stiff man syndrome)
Past Surgical History: Reports Other (None)
Social History
Tobacco: Former Smoker (Quit in 2011)
Alcohol: Chronic Alcoholic (Drinks 1-2 bottles of hard liquor about 5 times a week, last drink on Wednesday, never used alcohol as an eye-bridge opener.)
Drug: None
Personal: Single
Living: With Family
Employment: Disabled
Family History
Family History: Not pertinent
Allergies / Home Medications
Allergies reflects when Allergies were last updated in [facility].
Home Medications with original date entered in [facility]
Allergy/Medication List:
Allergies
Allergy/AdvReac Type Severity Reaction Status Date / Time
No Known Allergies Allergy Verified 02/14/25 06:57
Home Medications
diazepam 10 mg tablet (Valium) 10 mg PO QIDPRN PRN anxiety 02/14/25
Lyrica 75 mg once daily
Review of Systems
<Zeinab Adrian MD, Resident - Last Filed: 02/14/25 11:44>
-
History Source: Patient
Constitutional: Reports Fatigue and Other (Generalized sweating.)
EENT: Reports No Symptoms
Respiratory: Reports No Symptoms
Cardiac: Reports Palpitations
Abdomen/GI: Reports Abdominal Pain, Nausea and Diarrhea
: Reports Difficulty Voiding and Dark Urine
Skin: Reports See HPI
Neurological: Reports Dizzy and Weakness
Endocrine: Reports No Symptoms
Hematologic/Lymphatic: Reports No Symptoms
Psych: Reports No Symptoms
Physical Exam
<Zeinab Adrian MD, Resident - Last Filed: 02/14/25 11:44>
Vital Signs
Vital Signs
Temp Pulse Resp BP Pulse Ox
99.6 F 110 33 114/74 95
02/14/25 06:58 02/14/25 10:00 02/14/25 10:00 02/14/25 10:00 02/14/25 10:00
Physical Exam
General: No Apparent Distress and Comfortable
HEENT: Other (Icteric, intermittent esophoria noted)
Respiratory: Clear; No Wheezes, Rales, Rhonchi or Crackles
Cardiac: S1/S2, Regular Rhythm and Tachycardia; No Murmur, Rub or Gallop
GI: Normal Bowel Sounds, Tender (In the left upper quadrant), Distended, Organomegaly (Could not appreciate organomegaly from distention.), No Hernias and Other (Bilateral hand tremors noted, no asterixis.); No Soft
Genito-urinary: Deferred by me
Musculoskeletal: No Clubbing, No Cyanosis and No Edema
Skin: Warm
Neuro: AO x 3, No Motor Deficits, No Sensory Deficits and DTR's Intact & Symmetrical (1+ knee reflexes)
Psych: Calm
Laboratory Results
<Zeinab Adrian MD, Resident - Last Filed: 02/14/25 11:44>
-
02/14/25 08:02
02/14/25 08:02
Laboratory Results
PT 21.9 Sec (11.4-14.6) H 02/14/25 08:02
INR 1.85 02/14/25 08:02
Total Bilirubin 14.3 mg/dl (0.2-1.3) H 02/14/25 08:02
AST 781 U/L (17-59) H* 02/14/25 08:02
ALT 243 U/L (0-50) H 02/14/25 08:02
Alkaline Phosphatase 571 U/L (38-126) H 02/14/25 08:02
Lipase 168 U/L (23-300) 02/14/25 08:02
Data Reviewed
<Zeinab Adrian MD, Resident - Last Filed: 02/14/25 11:44>
-
Ultrasound: Image Personally Visualized and interpreted, Report Reviewed by me, Discussed with Physician, Discussed with Patient and Discussed with Family
Lab Data: Labs Reviewed by me, Discussed with Physician, Discussed with Patient and Discussed with Family
Impression/Plan
<Zeinab Adrian MD, Resident - Last Filed: 02/14/25 11:44>
-
IMPRESSION: 44-year-old male with PMHx significant for hypertension, acute alcoholic hepatitis in the past, alcohol use disorder, history of men syndrome, depression and a suicide attempt is admitted to the hospital for management of acute alcoholic
hepatitis.
PLAN:
Acute alcoholic hepatitis -
Similar episode of alcoholic hepatitis, admission to [facility] in June 2024
Last alcohol consumption-a week ago per patient.
AST and ALT elevated at 781 and 243 respectively.
Total bilirubin-14.3
Alk phos at 571, salicylates and acetaminophen-less than 1, less than 10.
Maddrey's DF score-47.6, defer glucocorticoids to GI.
Consult GI, direct bili, GGT.
Add daily PPIs, admit to telemetry.
clear liquid diet.
Chronic alcohol use disorder-
MSAS 5-7 upon arrival to the ER, last drink about 2 days ago.
Monitor the patient on MSAS protocol.
IV lorazepam as needed, switch to oral lorazepam
Thiamine and folate, B CARES consult.
Check magnesium and phosphorus.
Hypokalemia-
Potassium repleted in the ER.
Trend potassium levels.
Acalculous cholecystitis-
chronic - Ultrasound shows gallbladder wall thickening and mild pericholecystic fluid.
Hepatic steatosis and hepatosplenomegaly noted on ultrasound.
No role for antibiotics.
Bile duct dilation - 8mm, GI on board
Peripheral neuropathy, anxiety-
On Lyrica and Valium at home
Continue Lyrica
And Valium as needed.
Depression, prior suicide attempt-
Not on any medications.
DVT prophylaxis-
Subcu heparin.
CODE STATUS-
DNR.
<Bro Way MD - Last Filed: 02/14/25 12:55>
-
IMPRESSION: 44-year-old male with PMHx significant for hypertension, acute alcoholic hepatitis in the past, alcohol use disorder, history of men syndrome, depression and a suicide attempt is admitted to the hospital for management of acute alcoholic
hepatitis.
PLAN:
Acute alcoholic hepatitis -
Similar episode of alcoholic hepatitis, admission to [facility] in June 2024
Last alcohol consumption-a week ago per patient.
AST and ALT elevated at 781 and 243 respectively.
Total bilirubin-14.3
Alk phos at 571, salicylates and acetaminophen-less than 1, less than 10.
Maddrey's DF score-47.6, defer glucocorticoids to GI.
Consult GI, direct bili, GGT.
Add daily PPIs, admit to telemetry.
clear liquid diet.
Chronic alcohol use disorder-
MSAS 5-7 upon arrival to the ER, last drink about 2 days ago.
Monitor the patient on MSAS protocol.
IV lorazepam as needed, switch to oral lorazepam
Thiamine and folate, B CARES consult.
Check magnesium and phosphorus.
Hypokalemia-
Potassium repleted in the ER.
Trend potassium levels.
Acalculous cholecystitis-
chronic - Ultrasound shows gallbladder wall thickening and mild pericholecystic fluid.
Hepatic steatosis and hepatosplenomegaly noted on ultrasound.
No role for antibiotics.
Bile duct dilation - 8mm, GI on board
Peripheral neuropathy, anxiety-
On Lyrica and Valium at home
Continue Lyrica
And Valium as needed.
Depression, prior suicide attempt-
Not on any medications.
DVT prophylaxis-
scds
CODE STATUS-
DNR.
[2025-02-14] MEDS: KCL 270 MEQ IV (11:03)
[2025-02-14 11:27] LABS: Anisocytosis 1+; Hypochromasia 1+; Microcytosis 1+; Normal RBC Morphology Yes
[2025-02-14 11:28] LABS: Ovalocytes 1+; Target Cells 2+
[2025-02-14 11:31] LABS: Platelet Count 37 10^3/uL (130-400)
--- NOTE | 2025-02-14 11:45 | CON.GI ---
Addendum entered and electronically signed by Yanna Shore Do, MD 02/14/25 17:57:
I saw and evaluated the patient. I reviewed the resident�s note and agree with findings and plan as documented in the resident�s note.
Joshua is a 44yo M with h/o HTN, depression and ETOH abuse with prior ETOH hepatitis who presents for overall weakness, jaundice and dark urine. He drinks 2 bottles whiskey daily until he feels bad then stops for few weeks then resumes. He lives with
parents. He had ETOH hepatitis in 06/2024. Denies any long period of sobriety. No DUI. Vitals stable. T 100.3F exam obese distended NTTP. Labs reviewed
Impression
- Elevated LFTs and ETOH abuse
consistent with ETOH hepatitis
DF > 32
- Fever
- Pancytopenia
- HTN
- Depression
- Stiff man syndrome
- Depression
- Weakness
Recommendation
- Infectious workup including UA/BC/CXR
- CLD
- Given fever would hold on prednisolone until infectious workup is complete
- Observe for withdrawal
- ETOH cessation
Will follow with you
Original Note:
Consultation
-
Date/Time Consultation Requested: 02/14/2025
Date/Time Consultation Performed: 02/14/2025
Requesting Provider: Zeinab Adrian MD
Performing Provider: Yanna Barr MD; Carlos Munoz MD
Reason for Consultation: acute alcoholic hepatitis
Medical History
Chief Complaint / HPI
Chief Complaint: jaundice
History of Present Illness:
44 yo M PMH hypertension and alcohol use disorder, depression, previous suicide attempt, stiff man syndrome on IVIG p/w complaint of abdominal pain and jaundice.
Approximately, 1 week ago he noticed jaundice, decreased appetite, dark urine and began experiencing LLQ and RLQ pain that is nonradiating, dull achy. He reports nausea, dry heaves, some vomtiing but no blood in vomit. To me, he denies any changes
in bowel habits.
He does endorse etoh use, drinks at time times, up to ~2 bottles of whiskey per day. However, he says that his last drink on over the weekend. He last had PO inktake 2-3 days ago.
these constellation of symptoms have occurred before in Jun 2024, where he was diagnosed with alcoholic hepatitis without cholecystitis.
He feels that the pain has calmed down some.
He denies headaches, changes in vision, chest pain, dyspnea or focal weakness.
Past Medical History
Past Medical History: Other (Depression, suicide attempt, hypertension, alcohol use disorder, stiff man syndrome)
Past Surgical History: Other (none)
Social History
Tobacco: Former Smoker
Alcohol: Chronic Alcoholic
Drug: None
Personal: Single
Living: With Family
Allergies / Home Medications
Allergy/AdvReac Type Severity Reaction Status Date / Time
No Known Allergies Allergy Verified 02/14/25 06:57
�Medication �Instructions �Recorded
diazepam 10 mg tablet (Valium) 10 mg PO QIDPRN PRN anxiety 02/14/25
Review of Systems
-
History Source: Patient and Family
Constitutional: Reports No Symptoms
EENT: Reports No Symptoms
Respiratory: Reports No Symptoms
Cardiac: Reports No Symptoms
Abdomen/GI: Reports Abdominal Pain, Nausea and Vomiting
: Reports Dark Urine
Musculoskeletal: Reports No Symptoms
Skin: Reports No Symptoms
Neurological: Reports No Symptoms
Vital Signs
Temp Pulse Resp BP Pulse Ox
99.6 F 103 27 114/74 96
02/14/25 06:58 02/14/25 11:00 02/14/25 11:00 02/14/25 10:00 02/14/25 11:00
Physical Exam
Exam
General: Well Developed
HEENT: Normocephalic and Other (scleral icterus; occasional tongue fasciculations noted)
Respiratory: Clear (on ym exam)
Cardiac: Other (no murmurs on my exam)
GI: Soft, Tender (LLQ and RLQ on my exam, some tenderness to palpation), Distended and Other (no asterixis, but some tremors of the fingers)
Musculoskeletal: No Edema
Skin: Warm
Neuro: AO x 3 and Tremors
Psych: Calm
Results
WBC 3.9 10^3/uL (4.8-10.8) L 02/14/25 08:02
Hgb 9.5 g/dL (13.0-18.0) L 02/14/25 08:02
Hct 25.7 % (39.0-52.0) L 02/14/25 08:02
MCV 80.1 fL (80.0-94.0) 02/14/25 08:02
Plt Count 37 10^3/uL (130-400) L 02/14/25 08:02
Absolute Neuts (auto) 2.7 10^3/uL (1.4-6.5) 02/14/25 08:02
PT 21.9 Sec (11.4-14.6) H 02/14/25 08:02
INR 1.85 02/14/25 08:02
Sodium 137 mmol/L (135-145) 02/14/25 08:02
Potassium 3.0 mmol/L (3.5-5.1) L 02/14/25 08:02
Chloride 100 mmol/L (98-107) 02/14/25 08:02
Carbon Dioxide 28 mmol/L (22-30) 02/14/25 08:02
BUN 7 mg/dl (9-20) L 02/14/25 08:02
Creatinine 0.6 mg/dL (0.7-1.3) L 02/14/25 08:02
Calcium 8.1 mg/dl (8.4-10.2) L 02/14/25 08:02
Total Bilirubin 14.3 mg/dl (0.2-1.3) H 02/14/25 08:02
AST 781 U/L (17-59) H* 02/14/25 08:02
ALT 243 U/L (0-50) H 02/14/25 08:02
Alkaline Phosphatase 571 U/L (38-126) H 02/14/25 08:02
Lipase 168 U/L (23-300) 02/14/25 08:02
alcohol quantative: none detected
acetaminophen < 10ug/mL
Diagnostic Image Results:
Abdominal ultrasound 02/14/2025
FINDINGS:
LIVER: The liver measures up to 24 cm in length. Increased parenchymal echogenicity is compatible with steatosis.
BILE DUCTS: No intrahepatic biliary dilatation. The common bile duct measures 8 mm in diameter.
GALLBLADDER: No shadowing gallbladder calculus. Mild pericholecystic fluid. The anterior gallbladder wall measures 8 mm in thickness. The sonographic Avilez's sign was reportedly negative.
RETROPERITONEUM: The pancreas, inferior vena cava, and abdominal aorta are incompletely visualized secondary to adjacent bowel gas.
SPLEEN: The spleen measures 14 cm in length.
KIDNEYS: The right kidney measures 13.2 x 6.2 x 6.0 cm. The left kidney measures 13.1 x 6.1 x 5.7 cm. There is no hydronephrosis in either kidney.
IMPRESSION:
No evidence for cholelithiasis.
Gallbladder wall thickening and mild pericholecystic fluid, which have been present on previous examinations. Considerations include reactive wall edema versus acalculus cholecystitis.
Mild dilatation of the common bile duct measuring 8 mm in diameter.
Hepatic steatosis.
Hepatosplenomegaly.
Assessment / Plan
-
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
# Alcoholic hepatitis
- the ddx of abdominal pain broad and includes EtOH hepatitis, pancreatitis, cholecystitis
- Patient reports chronic EtOH use that is significant, last use 3-4 days ago
- LFTs: AST at 781; ALT 243; ALP 571 --> R factor of 1.1 pointing to cholestatic, but no evidence of cholestatic thus far.
- However, LFTs from admission in 06/2024 yielded R factor of 0.8, no evidence of cholestasis then either.
- AST elevated out of proportion to ALT is c/w etoh use
- Abomdinal ultrasound showed no evidence of cholelithiasis, possible acalculous cholecystitis, mild dilatation of CBD, hepatitc steatosis.
- lipase is normal at 168
- INR is now 1.85, Tbili 14.3; reassuringly Cr within normal limits at 0.6
- per documentation, Charlene DF score is now 47.9 (in prior admission, DF = 14.0).
- MELD score this admission is 23 points
- Together, scoring metrics suggest severe alcoholic hepatitis, which may indicate a role for pharmacologic therapy
Plan:
- supportive care: fluid, electrolyte management
- nutrition support: thiamine and folate
- pantoprazole IV
- given elevated DF/MELD; consider IV N-acetylcysteine and glucocorticoids per UpToDate (DF > 32, MELD >20)
- Can consider CT abdomen with contrast given worsening liver function metrics from last admission and US concern for acalculous cholecystitis.
- REcommendations are not final until discussed with Dr. Barr, GI attg
-
-
Thank you for consultation and allowing me to participate in the patient's care. Please call the loss prevention operations manager GI physician during the after hours with any questions or concerns.
[2025-02-14 13:34] LABS: Magnesium 0.9 mg/dl (1.6-2.3)
--- NOTE | 2025-02-14 13:34 | CM ---
CM reviewed chart and met with pt and his mother bedside in ED. Lives with his mother, 3 story home, no GIANCARLO, half bath on first floor, full flight to second floor bedroom and full bath.
Independent in ADLs, personal care and ambulation at baseline, drives. No assistive devices.
Confirms prescription coverage.
Offered BCARES, pt declined at this time.
VN in past with nurse pro for IVIG infusions, last dose in October. No hx SNF.
PCP: Jai Castro
Pharmacy: [facility]
Anticipate discharge home, CM will continue to follow for all discharge planning needs.
[2025-02-14 13:41] LABS: GGTP 1834 U/L (15-73)
[2025-02-14] MEDS: MAGNESIUM SULFATE 100 IV (14:17)
[2025-02-14] MEDS: LYRICA 75 MG PO (14:22)
[2025-02-14] MEDS: LR 1000 IV (14:22)
[2025-02-14] MEDS: SODIUM PHOSPHATE 255 MEQ IV (18:20)
[2025-02-14] MEDS: ATIVAN 1 MG PO (18:30)
[2025-02-14] MEDS: THIAMINE INJECTION 200 MG IV (20:22)
[2025-02-14] MEDS: TYLENOL 650 MG PO (20:45)
[2025-02-15] MEDS: LR IV (01:26)
[2025-02-15 03:00] VITALS: BP 118/73
[2025-02-15 04:20] LABS: INR 2.03; PT 23.4 Sec (11.4-14.6)
[2025-02-15 04:23] LABS: Hematocrit 22.9 % (39.0-52.0); Hemoglobin 8.4 g/dL (13.0-18.0); Mean Corp Hgb Conc. 36.7 g/dL (33.0-37.0); Mean Corpuscular Volume 80.9 fL (80.0-94.0); Nucleated Red Blood Cells % 1.7 % (-); Platelet Count 35 10^3/uL (130-400); Red Cell Dist. Width 26.3 % (11.5-14.5)
[2025-02-15 04:41] LABS: ALT (SGPT) 207 U/L (0-50); AST (SGOT) 614 U/L (17-59); Albumin 2.9 g/dl (3.5-5.0); Alkaline Phosphatase 533 U/L (38-126); Blood Urea Nitrogen 4 mg/dl (9-20); Calcium 7.7 mg/dl (8.4-10.2); Carbon Dioxide 26 mmol/L (22-30); Chloride 103 mmol/L (98-107); Estimated Creatinine Clearance > 125 ml/min; GGTP 1271 U/L (15-73); Glucose 91 mg/dl (70-99); Magnesium 1.9 mg/dl (1.6-2.3); Potassium 3.3 mmol/L (3.5-5.1); Sodium 137 mmol/L (135-145); Total Protein 6.4 g/dl (6.3-8.2); eGFR > 60.00
[2025-02-15] MEDS: LR 1000 IV ×2 (06:37→20:05)
[2025-02-15 07:51] VITALS: BP 137/83
--- NOTE | 2025-02-15 08:48 | W.PN.HOSP.TC ---
Today's Communication/Plan
-
Continue with IV fluids
Replete potassium
MRI with and without abdomen
Follow-up on the blood culture data
Continue with alcohol withdrawal protocol
Assessment / Plan
Assessment / Plan
IMPRESSION: 44-year-old male with PMHx significant for hypertension, acute alcoholic hepatitis in the past, alcohol use disorder, history of men syndrome, depression and a suicide attempt is admitted to the hospital for management of acute alcoholic
hepatitis.
PLAN:
#Acute on chronic alcoholic hepatitis
#Severe transaminitis
Mild improvement in AST and ALT.
Bump in bilirubin noted.
Alk phos at 571, salicylates and acetaminophen-less than 1, less than 10.
Patient with elevated Madrey score and if infectious workup negative may need to consider steroid
Chest x-ray negative for acute infiltrate. Urine culture negative. Blood cultures in lab.
Plan for MRI with and without contrast today.
IV fluids continue
GI following
#Chronic alcohol use disorder-
Monitor the patient on MSAS protocol.
IV lorazepam as needed, switch to oral lorazepam
Thiamine and folate, B CARES consult.
#Pancytopenia likely secondary to pulmonary suppression from severe alcohol abuse
Platelets low. Monitor.
Monitor hemoglobin.
Transfuse for hemoglobin less than 7
#Hypokalemia /hypomagnesemia and hypophosphatemia
Replete and monitor
#Acalculous cholecystitis-
chronic - Ultrasound shows gallbladder wall thickening and mild pericholecystic fluid.
Hepatic steatosis and hepatosplenomegaly noted on ultrasound.
No role for antibiotics.
Plan for repeat MRI today
#Peripheral neuropathy, anxiety-
On Lyrica and Valium at home
Continue Lyrica
And Valium as needed.
Depression, prior suicide attempt-
Not on any medications.
Stiff person syndrome
Hx of VT
DVT prophylaxis- scds for now setting of severe thrombocytopenia
CODE STATUS-
DNR.
Discussed with patient and mother at bedside in detail.
Anticipated Discharge: > 48 hours
Subjective/Interval History
-
date of Service: February 15, 2025
States feeling better compared to yesterday
Denies any abdominal pain
Denies any dry heaves today
Objective Data
-
Labs:
Laboratory Results
02/15/25
03:37
WBC 3.6 L
Hgb 8.4 L
Hct 22.9 L
Plt Count 35 L
PT 23.4 H
INR 2.03
Sodium 137
Potassium 3.3 L
Chloride 103
Carbon Dioxide 26
BUN 4 L
Creatinine 0.6 L
Glucose 91
Calcium 7.7 L
Total Bilirubin 17.1 H
AST 614 H*
ALT 207 H
Alkaline Phosphatase 533 H
Vital Signs:
Vital Signs
Temp Pulse Resp BP Pulse Ox
98.9 F 91 18 118/73 99
02/15/25 03:00 02/15/25 03:00 02/15/25 03:00 02/15/25 03:00 02/15/25 03:00
I&O
02/14/25 02/15/25 02/16/25
06:59 06:59 06:59
Output Total 130 / 130
Balance -130 / -130
Physical Exam
-
General: Well Developed, No Apparent Distress and Appears Chronically Ill
HEENT: Normocephalic, Atraumatic and Moist Mucous Membranes
Respiratory: Clear to Auscultation
Cardiac: Regular Rhythm and S1/S2; Negative Murmur, Rub or Gallop
GI: Soft, Nontender, Nondistended and Normal Bowel Sounds; Negative Organomegaly
Rectal: Deferred by Provider
Musculoskeletal: No Clubbing, No Cyanosis and No Edema
Skin: Warm and Jaundice; Negative Rash
Neuro: Awake, No Motor Deficits and Nonfocal/Grossly Intact
Psych: Calm
Data Reviewed
-
Total Time Spent with Patient (in minutes): 55
[2025-02-15] MEDS: KCL 270 MEQ IV (09:30)
[2025-02-15] MEDS: LYRICA 75 MG PO (09:47)
[2025-02-15] MEDS: FOLVITE 1 MG PO (09:47)
[2025-02-15] MEDS: PROTONIX 40 MG PO (09:47)
[2025-02-15] MEDS: THIAMINE INJECTION 200 MG IV ×2 (09:50→20:06)
--- NOTE | 2025-02-15 11:56 | W.PN.GI.CBS2 ---
Addendum entered and electronically signed by Yanna Shore Do, MD 02/15/25 16:22:
I saw and evaluated the patient. I reviewed the resident�s note and agree with findings and plan as documented in the resident�s note.
Joshua has no abd pain. No further diarrhea. Mother bedside. He is not interested in ETOH rehab. Vitals stable exam jaundice slow speech, obese abd. Labs reviewed DF >70. Abd US reviewed. CXR neg. UA/BC thus far neg
Recommendation
- Given neg infectious workup will start prednisolone 40mg daily (02/15) for ETOH hepatitis
- Recommend calculation of Lille score on day 7 to assess response
- Given resolution of abd pain would not pursue MRI. He had one 06/2024 already
- Counseled on ETOH cessation. He is precontemplative. Makes prognosis guarded
- Consider pysch consult as depression may be contributor
At this junction GI will sign off pleas call for questions
Original Note:
Today's Communication / Plan
-
Plan:
- MRI abdomen with MRCP
- f/u blood cultures, monitor VS
- possible role for prednisolone tomorrow depending on infectious workup
- continue supportive care
- recommendations are not final until discussed with Dr. Barr, GI attg
Assessment / Plan
-
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
# Alcoholic hepatitis
- significant EtOH use, prior EtOH hepatitis in 06/2024
- denies infectious symptoms, CXR, UA-Cx negative, BCx pending
- LFT: AST is now 641 from 781;
- DF today is 57.6 (total bilirubin 17.1; PT 23.4)
- Previous imaging did not show cholelithiasis but did show CBD of 8mm, mild dilatation
- Given that EtOH hepatitis often can present with cirrhosis-like structural changes that are reversible upon etOH cessation, and the possible reactive wall edema/acalculous cholecystitis on CT abdomen, an MR with MRCP can be done to evaluate the
biliary tree.
Plan:
- MRI abdomen with MRCP
- f/u blood cultures, monitor VS; if continues to be unremarkable, consider prednisolone administration tomorrow to manage EtOH hepatitis
- supportive care: fluid, electrolyte management
- nutrition support: thiamine and folate
- pantoprazole IV
- recommendations are not final until discussed with Dr. Barr, GI attg
Subjective
Subjective
Date of Service: February 15, 2025
Today, he reports feeling better. Is tolerating the CLD, passing flatus.
Denies cough, feeling feverish/chills, denies dysuria.
Asking about potentially adavcing diet.
Denies auditory or visual hallucinations
Objective
Data Reviewed
Laboratory Data:
Laboratory Results
02/15/25 03:37
02/15/25 03:37
Laboratory Results
PT 23.4 Sec (11.4-14.6) H 02/15/25 03:37
INR 2.03 02/15/25 03:37
Phosphorus 2.5 mg/dl (2.5-4.5) 02/15/25 03:37
Magnesium 1.9 mg/dl (1.6-2.3) 02/15/25 03:37
Total Bilirubin 17.1 mg/dl (0.2-1.3) H 02/15/25 03:37
AST 614 U/L (17-59) H* 02/15/25 03:37
ALT 207 U/L (0-50) H 02/15/25 03:37
Alkaline Phosphatase 533 U/L (38-126) H 02/15/25 03:37
Lipase 168 U/L (23-300) 02/14/25 08:02
Urine culture from 02/14/2025: negative
CXR from 02/15/2025:
IMPRESSION:
No acute disease of the chest.
Right line placement as described above.
Blood cutlures from 02/15/2025 pending
Vital Signs and I&O:
Vital Signs
Temp Pulse Resp BP Pulse Ox
98.7 F 105 20 137/83 96
02/15/25 07:51 02/15/25 07:51 02/15/25 07:51 02/15/25 07:51 02/15/25 07:51
I&O
02/14/25 02/15/25 02/16/25
06:59 06:59 06:59
Output Total 130 / 130
Balance -130 / -130
Physical Exam
Physical Exam
HEENT: Other (scleral icterus; jaundice)
Cardiology: Other (no murmurs on my exam)
Pulmonary: Clear (clear on my exam)
GI: Soft, Distended, Non Tender and Normal Bowel Sounds (bowel sounds present)
Extremities: Edema
Neuro: Non Focal
[2025-02-15 12:37] VITALS: BP 136/89
[2025-02-15 16:13] VITALS: BP 117/75
[2025-02-15] MEDS: PRELONE 40 MG PO (18:02)
[2025-02-15 19:48] VITALS: BP 136/86
[2025-02-15 23:04] VITALS: BP 123/64
[2025-02-16 03:23] VITALS: BP 139/88
[2025-02-16 05:19] LABS: Hematocrit 25.5 % (39.0-52.0); Hemoglobin 8.7 g/dL (13.0-18.0); Mean Corp Hgb Conc. 34.1 g/dL (33.0-37.0); Mean Corpuscular Volume 84.7 fL (80.0-94.0); Red Cell Dist. Width 27.5 % (11.5-14.5)
[2025-02-16 05:27] LABS: ALT (SGPT) 183 U/L (0-50); AST (SGOT) 520 U/L (17-59); Albumin 3.0 g/dl (3.5-5.0); Alkaline Phosphatase 504 U/L (38-126); Blood Urea Nitrogen 4 mg/dl (9-20); Calcium 7.8 mg/dl (8.4-10.2); Carbon Dioxide 24 mmol/L (22-30); Chloride 105 mmol/L (98-107); Estimated Creatinine Clearance > 125 ml/min; Glucose 137 mg/dl (70-99); Magnesium 1.9 mg/dl (1.6-2.3); Potassium 3.9 mmol/L (3.5-5.1); Sodium 137 mmol/L (135-145); Total Protein 6.5 g/dl (6.3-8.2); eGFR > 60.00
[2025-02-16] MEDS: LR 1000 IV (05:50)
[2025-02-16 06:43] LABS: Nucleated Red Blood Cells % 1.8 % (-); Platelet Count 49 10^3/uL (130-400)
[2025-02-16] MEDS: THIAMINE INJECTION 200 MG IV ×2 (07:50→19:30)
[2025-02-16] MEDS: LYRICA 75 MG PO (07:50)
[2025-02-16] MEDS: FOLVITE 1 MG PO (07:50)
[2025-02-16] MEDS: PROTONIX 40 MG PO (07:50)
[2025-02-16] MEDS: PRELONE 40 MG PO (07:51)
[2025-02-16 08:17] VITALS: BP 129/81
--- NOTE | 2025-02-16 11:04 | CM ---
Addendum entered by Madelin Razo 02/16/25 16:19:
Patient seen bedside with mother, provided with [facility] paperwork and contact information to schedule appointment.
Original Note:
CM reviewed chart, reviewed with Nurse and Hospitalist.
Patient not for d/c today.
Provided with Residency clinic information- patient requesting CM to place in chart.
Patient reports mother will be visiting today, CM will provide [facility]idency [facility] information to mother in addition.
Care ongoing, CM will continue to follow for all d/c planning needs.
Plan; home no needs, declining [facility]
--- NOTE | 2025-02-16 13:45 | W.PN.HOSP.TC ---
Today's Communication/Plan
-
DC fluids
Monitor for diet tolerance
Trend LFTs
Will need to discuss with GI if they can follow-up patient in the clinic
Continue with prednisolone
Assessment / Plan
Assessment / Plan
IMPRESSION: 44-year-old male with PMHx significant for hypertension, acute alcoholic hepatitis in the past, alcohol use disorder, history of men syndrome, depression and a suicide attempt is admitted to the hospital for management of acute alcoholic
hepatitis.
PLAN:
#Acute on chronic alcoholic hepatitis
#Severe transaminitis
Mild improvement in AST and ALT.
T. bili continue to bump up.
Alk phos at 571, salicylates and acetaminophen-less than 1, less than 10.
Patient with significantly elevated Madrey score and was started on prednisone on 02/15/2025
Chest x-ray negative for acute infiltrate. Urine culture negative. Blood cultures in lab remains negative
Patient tolerating diet and no plan to repeat MRCP at this point
DC fluids and tolerating diet
Patient will need additional blood work in 1 week to assess/calculate Madrey score to see if improvement with steroids.
GI following
#Chronic alcohol use disorder-
Monitor the patient on MSAS protocol.
IV lorazepam as needed, switch to oral lorazepam
Thiamine and folate, discussed with patient in detail. Patient does not want to go to detox rehabilitation. Discussed further about depression and denies being depressed.
Counseled patient on complete alcohol cessation.
#Pancytopenia likely secondary to pulmonary suppression from severe alcohol abuse
Platelets improving and hopefully continues to stabilize
Monitor hemoglobin.
Transfuse for hemoglobin less than 7
#Hypokalemia /hypomagnesemia and hypophosphatemia
Replete and monitor
#Acalculous cholecystitis-
chronic - Ultrasound shows gallbladder wall thickening and mild pericholecystic fluid.
Hepatic steatosis and hepatosplenomegaly noted on ultrasound.
No role for antibiotics.
No abdominal pain. Tolerating diet.
#Peripheral neuropathy, anxiety-
On Lyrica and Valium at home
Continue Lyrica
And Valium as needed.
Depression, prior suicide attempt-
Not on any medications.
Stiff person syndrome
Hx of VT
DVT prophylaxis- scds for now setting of severe thrombocytopenia
CODE STATUS-
DNR.
Discussed with case management to give further information and details for outpatient primary clinic
Long-term prognosis guarded
Anticipated Discharge: Within 24 hours
Subjective/Interval History
-
Date of Service: February 16, 2025
Denies any abdominal pain, or any nausea
Tolerating diet
Objective Data
-
Labs:
Laboratory Results
02/16/25
04:18
WBC 4.4 L
Hgb 8.7 L
Hct 25.5 L
Plt Count 49 L D
Sodium 137
Potassium 3.9
Chloride 105
Carbon Dioxide 24
BUN 4 L
Creatinine 0.5 L
Glucose 137 H
Calcium 7.8 L
Total Bilirubin 19.3 H*
AST 520 H*
ALT 183 H
Alkaline Phosphatase 504 H
Vital Signs:
Vital Signs
Temp Pulse Resp BP Pulse Ox
98.2 F 92 18 129/81 95
02/16/25 11:00 02/16/25 11:00 02/16/25 03:23 02/16/25 08:17 02/16/25 08:17
I&O
02/15/25 02/16/25 02/17/25
06:59 06:59 06:59
Intake Total 1650 / 1650
Output Total 130 / 130
Balance -130 / -130 1650 / 1650
Physical Exam
-
General: Well Developed, No Apparent Distress and Appears Chronically Ill
HEENT: Normocephalic, Atraumatic and Moist Mucous Membranes
Respiratory: Clear to Auscultation
Cardiac: Regular Rhythm and S1/S2; Negative Murmur, Rub or Gallop
GI: Soft, Nontender, Nondistended and Normal Bowel Sounds; Negative Organomegaly
Rectal: Deferred by Provider
Musculoskeletal: No Clubbing, No Cyanosis and No Edema
Skin: Warm and Jaundice; Negative Rash
Neuro: Awake, Alert, Oriented, AO x 3, No Motor Deficits and Nonfocal/Grossly Intact
Psych: Calm
Data Reviewed
-
Total Time Spent with Patient (in minutes): 55
[2025-02-16 13:53] LABS: Iron 116 ug/dl (49-181)
[2025-02-16 14:03] LABS: Total Iron Binding Capacity 161 ug/dl (261-462)
[2025-02-16 15:00] LABS: Folate 5.7 ng/ml (2.76-20); Vitamin B12 933 pg/ml (239-931)
[2025-02-16 15:14] LABS: Ferritin 2640.0 ng/ml (17.9-464.0)
[2025-02-16 15:39] VITALS: PULSE 100; O2SAT 95
[2025-02-16 15:57] VITALS: BP 133/82
[2025-02-16 19:20] VITALS: BP 129/79
[2025-02-16 23:30] VITALS: BP 121/72
[2025-02-17 03:36] VITALS: BP 120/75
[2025-02-17 06:38] LABS: Hematocrit 24.2 % (39.0-52.0); Hemoglobin 8.1 g/dL (13.0-18.0); Mean Corp Hgb Conc. 33.5 g/dL (33.0-37.0); Mean Corpuscular Volume 86.4 fL (80.0-94.0); Nucleated Red Blood Cells % 2.1 % (-); Platelet Count 79 10^3/uL (130-400); Red Cell Dist. Width 29.4 % (11.5-14.5)
[2025-02-17 06:39] LABS: ALT (SGPT) 159 U/L (0-50); AST (SGOT) 348 U/L (17-59); Albumin 2.8 g/dl (3.5-5.0); Alkaline Phosphatase 449 U/L (38-126); Blood Urea Nitrogen 8 mg/dl (9-20); Calcium 8.1 mg/dl (8.4-10.2); Carbon Dioxide 26 mmol/L (22-30); Chloride 107 mmol/L (98-107); Estimated Creatinine Clearance > 125 ml/min; Glucose 95 mg/dl (70-99); Magnesium 1.9 mg/dl (1.6-2.3); Potassium 3.6 mmol/L (3.5-5.1); Sodium 137 mmol/L (135-145); Total Protein 6.3 g/dl (6.3-8.2); eGFR > 60.00
[2025-02-17 07:26] VITALS: BP 121/77
[2025-02-17] MEDS: PROTONIX 40 MG PO (08:18)
[2025-02-17] MEDS: THIAMINE INJECTION 200 MG IV (08:19)
[2025-02-17] MEDS: FOLVITE 1 MG PO (08:19)
[2025-02-17] MEDS: LYRICA 75 MG PO (08:19)
[2025-02-17] MEDS: PRELONE 40 MG PO (08:20)
[2025-02-17 10:56] VITALS: BP 138/85
--- NOTE | 2025-02-17 12:43 | W.PN.HOSP.TC ---
Today's Communication/Plan
-
Monitor hemoglobin
trend LFTs improving
Possible dispo DC in morning
Assessment / Plan
Assessment / Plan
IMPRESSION: 44-year-old male with PMHx significant for hypertension, acute alcoholic hepatitis in the past, alcohol use disorder, history of men syndrome, depression and a suicide attempt is admitted to the hospital for management of acute alcoholic
hepatitis.
PLAN:
#Acute on chronic alcoholic hepatitis
#Severe transaminitis
Mild improvement in AST and ALT.
T. bili continue to bump up.
Alk phos at 571, salicylates and acetaminophen-less than 1, less than 10.
Patient with significantly elevated Madrey score and was started on prednisone on 02/15/2025
Chest x-ray negative for acute infiltrate. Urine culture negative. Blood cultures in lab remains negative
Patient tolerating diet and no plan to repeat MRCP at this point
DC fluids and tolerating diet
Patient will need additional blood work in 1 week to assess/calculate Madrey score to see if improvement with steroids. Discussed with gastroenterology Dr. Johnson who will schedule follow-up appointment with them in the office.
#Chronic alcohol use disorder-
Monitor the patient on MSAS protocol.
IV lorazepam as needed, switch to oral lorazepam
Thiamine and folate, discussed with patient in detail. Patient does not want to go to detox rehabilitation. Discussed further about depression and denies being depressed.
Counseled patient on complete alcohol cessation.
#Pancytopenia likely secondary to pulmonary suppression from severe alcohol abuse
Platelets improving and hopefully continues to stabilize
Monitor hemoglobin.
Transfuse for hemoglobin less than 7
Monitor hemoglobin. Mild downtrend noted. Did receive IV fluids. No luminal bleeding noted.
#Hypokalemia /hypomagnesemia and hypophosphatemia
Replete and monitor
#Acalculous cholecystitis-
chronic - Ultrasound shows gallbladder wall thickening and mild pericholecystic fluid.
Hepatic steatosis and hepatosplenomegaly noted on ultrasound.
No role for antibiotics.
No abdominal pain. Tolerating diet.
#Peripheral neuropathy, anxiety-
On Lyrica and Valium at home
Continue Lyrica
And Valium as needed.
Depression, prior suicide attempt-
Not on any medications.
Stiff person syndrome
Hx of VT
DVT prophylaxis- scds for now setting of severe thrombocytopenia
CODE STATUS-
DNR.
Discussed with case management to give further information and details for outpatient primary clinic
PT recs outpatient therapy
Long-term prognosis guarded
Anticipated Discharge: Within 24 hours
Subjective/Interval History
-
Date of Service: February 17, 2025
states improvement in abd pain
Objective Data
-
Labs:
Laboratory Results
02/17/25
05:47
WBC 5.8
Hgb 8.1 L
Hct 24.2 L
Plt Count 79 L D
Sodium 137
Potassium 3.6
Chloride 107
Carbon Dioxide 26
BUN 8 L
Creatinine 0.6 L
Glucose 95
Calcium 8.1 L
Total Bilirubin 18.7 H*
AST 348 H
ALT 159 H
Alkaline Phosphatase 449 H
Vital Signs:
Vital Signs
Temp Pulse Resp BP Pulse Ox
98.7 F 90 16 138/85 97
02/17/25 10:56 02/17/25 10:56 02/17/25 10:56 02/17/25 10:56 02/17/25 10:56
I&O
02/16/25 02/17/25 02/18/25
06:59 06:59 06:59
Intake Total 1650 / 1650 880 / 880
Balance 1650 / 1650 880 / 880
[2025-02-17 14:53] VITALS: BP 130/76
[2025-02-17] MEDS: REFRESH EYE DROPS (PF) 1 DROPS OPHTH (17:40)
[2025-02-17] MEDS: VITAMIN B1 100 MG PO (20:24)
[2025-02-17 23:04] VITALS: BP 143/69
[2025-02-18 08:20] VITALS: BP 129/78
[2025-02-18] MEDS: PROTONIX 40 MG PO (08:54)
[2025-02-18] MEDS: FOLVITE 1 MG PO (08:54)
[2025-02-18] MEDS: VITAMIN B1 100 MG PO (08:54)
[2025-02-18] MEDS: LYRICA 75 MG PO (08:55)
[2025-02-18] MEDS: PRELONE 40 MG PO (08:57)
[2025-02-18 09:02] LABS: Hematocrit 27.3 % (39.0-52.0); Hemoglobin 9.5 g/dL (13.0-18.0); Mean Corp Hgb Conc. 34.8 g/dL (33.0-37.0); Mean Corpuscular Volume 87.2 fL (80.0-94.0); Platelet Count 117 10^3/uL (130-400); Red Cell Dist. Width 31.9 % (11.5-14.5)
[2025-02-18 10:08] LABS: ALT (SGPT) 149 U/L (0-50); AST (SGOT) 295 U/L (17-59); Albumin 3.3 g/dl (3.5-5.0); Alkaline Phosphatase 429 U/L (38-126); Blood Urea Nitrogen 10 mg/dl (9-20); Calcium 8.4 mg/dl (8.4-10.2); Carbon Dioxide 23 mmol/L (22-30); Chloride 107 mmol/L (98-107); Estimated Creatinine Clearance > 125 ml/min; Glucose 131 mg/dl (70-99); Magnesium 1.9 mg/dl (1.6-2.3); Potassium 3.4 mmol/L (3.5-5.1); Sodium 138 mmol/L (135-145); Total Protein 7.2 g/dl (6.3-8.2); eGFR > 60.00
[2025-02-18 10:29] LABS: Nucleated Red Blood Cells % 2.9 % (-)
--- NOTE | 2025-02-18 12:13 | W.PN.HOSP.TC ---
Today's Communication/Plan
-
Replete potassium
Continue with prednisone
Assessment / Plan
Assessment / Plan
IMPRESSION: 44-year-old male with PMHx significant for hypertension, acute alcoholic hepatitis in the past, alcohol use disorder, history of men syndrome, depression and a suicide attempt is admitted to the hospital for management of acute alcoholic
hepatitis.
PLAN:
#Acute on chronic alcoholic hepatitis
#Severe transaminitis
salicylates and acetaminophen-less than 1, less than 10.
Patient with significantly elevated Madrey score and was started on prednisone on 02/15/2025
Chest x-ray negative for acute infiltrate. Urine culture negative. Blood cultures in lab remains negative
Patient tolerating diet and no plan to repeat MRCP at this point
DC fluids and tolerating diet
Patient will need additional blood work in 1 week to assess/calculate Madrey score to see if improvement with steroids. Discussed with gastroenterology Dr. Johnson who will schedule follow-up appointment with them in the office. Patient knows
to call gastroenterology office for follow-up and blood work.
#Chronic alcohol use disorder-
Monitor the patient on MSAS protocol.
IV lorazepam as needed, switch to oral lorazepam
Thiamine and folate, discussed with patient in detail. Patient does not want to go to detox rehabilitation. Discussed further about depression and denies being depressed.
Counseled patient on complete alcohol cessation.
#Pancytopenia likely secondary to pulmonary suppression from severe alcohol abuse
Platelets improving and hopefully continues to stabilize
Monitor hemoglobin.
Transfuse for hemoglobin less than 7
Monitor hemoglobin. Mild downtrend noted. Did receive IV fluids. No luminal bleeding noted.
Hemoglobin stable at 9.5.
#Hypokalemia /hypomagnesemia and hypophosphatemia
Replete and monitor
#Acalculous cholecystitis-
chronic - Ultrasound shows gallbladder wall thickening and mild pericholecystic fluid.
Hepatic steatosis and hepatosplenomegaly noted on ultrasound.
No role for antibiotics.
No abdominal pain. Tolerating diet.
#Peripheral neuropathy, anxiety-
On Lyrica and Valium at home
Continue Lyrica
And Valium as needed.
Depression, prior suicide attempt-
Not on any medications.
Stiff person syndrome
Hx of VT
DVT prophylaxis- scds for now setting of severe thrombocytopenia
CODE STATUS-
DNR.
Discussed with case management to give further information and details for outpatient primary clinic
Patient not interested in going to detox rehabilitation.
PT recs outpatient therapy
Long-term prognosis guarded
More than 30 minutes spent in discharge including
Final examination of the patient
Summarizing hospital stay
Instructions for continuing care to all relevant caregivers
Preparation of discharge records, prescriptions, and referral forms
Total time spent (in minutes): 52
Anticipated Discharge: Today
Subjective/Interval History
-
Date of Service: February 18, 2025
Denies any abdominal pain. Denies any nausea or vomiting.
Tolerating diet.
Objective Data
-
Labs:
Laboratory Results
02/18/25
08:35
WBC 7.8
Hgb 9.5 L
Hct 27.3 L
Plt Count 117 L D
Sodium 138
Potassium 3.4 L
Chloride 107
Carbon Dioxide 23
BUN 10
Creatinine 0.6 L
Glucose 131 H
Calcium 8.4
Total Bilirubin 19.4 H*
AST 295 H
ALT 149 H
Alkaline Phosphatase 429 H
Vital Signs:
Vital Signs
Temp Pulse Resp BP Pulse Ox
98.3 F 77 20 129/78 97
02/18/25 08:20 02/18/25 08:20 02/18/25 08:20 02/18/25 08:20 02/18/25 08:20
I&O
02/17/25 02/18/25 02/19/25
06:59 06:59 06:59
Intake Total 880 / 880 960 / 960
Balance 880 / 880 960 / 960
Physical Exam
-
General: Well Developed, No Apparent Distress, Appears Chronically Ill and Other (Watching shows on laptop)
HEENT: Normocephalic, Atraumatic and Moist Mucous Membranes
Respiratory: Clear to Auscultation
Cardiac: Regular Rhythm and S1/S2; Negative Murmur, Rub or Gallop
GI: Soft, Nontender, Nondistended and Normal Bowel Sounds; Negative Organomegaly
Rectal: Deferred by Provider
Musculoskeletal: No Clubbing, No Cyanosis and No Edema
Skin: Warm and Jaundice; Negative Rash
Neuro: Awake, Alert, Oriented, AO x 3, No Motor Deficits and Nonfocal/Grossly Intact
Psych: Calm
[2025-02-18] MEDS: KCL 20 MEQ PO (12:18)
[2025-02-18] MEDS: VALIUM 10 MG PO (12:18)
--- NOTE | 2025-02-18 12:24 | W.DCSUMMARY ---
Discharge Summary
Discharge Data
Date of Admission: 02/14/25
Date of Discharge: 02/18/25
-
Pending Results: No
Hospital Course
44-year-old male past medical history of alcohol abuse, pancytopenia, history of stiff person syndrome, chronic diarrhea, history of V. tach arrest who is presenting from home with complaints of skin color changes. Patient was found to have acute
alcoholic hepatitis. Infectious workup was started and was found to be negative. Patient was eval by gastroenterology. Patient with elevated Madrey discriminant function. Patient electrolytes were severely abnormal and was repleted. Patient was
started on IV fluid resuscitation. Patient diet was slowly advanced from clears to regular. Patient was tolerating diet without any difficulty. Patient underwent alcohol withdrawal protocol. Patient did well in regards for withdrawal protocol.
Patient did not want to go to detox rehabilitation. Patient was started on prednisolone and upon discharge patient will follow-up with gastroenterology for further management of steroids. Discussed with Dr. Johnson who sent message to her office
for patient to be seen next week for management of prednisolone and blood work to assess Madrey discriminant function to assess response of steroids. Patient was tolerating diet without any difficulty. Hemoglobin was stable. Patient with
chronically elevated bilirubin. Patient without any abdominal pain. Patient was started by physical therapy. Patient was given resources for outpatient primary doctor residency clinic. This information was also provided to patient mother.
Multiple times patient was counseled for complete alcohol cessation and offered assistance if he wanted. Patient did not want to go to detox rehab. Patient to be discharged home.
Discharge Plan
-
Patient Disposition: Home (Routine Discharge)
Discharge Diagnosis/Procedures: Acute on chronic alcoholic hepatitis
Anemia
Thrombocytopenia
Hypokalemia
Hypomagnesemia
Hypophosphatemia
Condition: Fair
Diet: Regular
Activity: As tolerated
Driving Restrictions: No driving
Blood Work: Recommend repeat CMP and PT/PTT in 3 days via primary doctor or gastroenterology to calculate Madey discriminant function
Activity Restrictions/Additional Instructions:
Follow-up with gastroenterology in regards for alcoholic hepatitis and repeat blood work to see if responding appropriately to prednisone or not. Call to confirm appointment time
Referrals:
Yanna Barr MD [Active, Gastroenterology] - in less than 1 week
Referral Note: Call office to confirm appointment.
Jai Castro MD [Family Provider, Psychiatry] - in one to two weeks
Prescriptions:
New
pantoprazole 40 mg Tablet,Delayed Release (Dr/Ec)
40 mg PO DAILY 30 Days Qty: 30 0RF
thiamine mononitrate (vit B1) 100 mg Tablet
100 mg PO DAILY 30 Days Qty: 30 0RF
prednisolone 15 mg/5 mL solution
40 mg PO BID 25 Days Qty: 666.665 0RF
Continued
diazepam [Valium] 10 mg Tablet
10 mg PO QIDPRN PRN (Reason: anxiety)
Discharge Orders:
Discharge Patient (As Directed); Ordered 02/18/25
Ordered By: Bro Way
Discharge Date and Time
Print Language: ESTONIAN
--- NOTE | 2025-02-18 14:11 | CM ---
Met with patient; [facility] counseling offered; patient declined; Mother at bedside; reported she will transport home
Plan: Discharge to home, No needs
[2025-02-18 14:13] VITALS: BP 147/77
== END 2025-02-18 14:40 | disposition home or self-care (01) | DRG 433 ==
LOC: 4 WEST ACU 12:08
PROVIDERS: ADMITTING PHYSICIAN Hospitalist; CONSULT PHYSICIAN Internal Medicine Gastroenterology; EMERGENCY PHYSICIAN Emergency Medicine; FAMILY PHYSICIAN Psychiatry & Neurology Neurology
DX: K70.10 Alcoholic hepatitis without ascites (principal); D61.818 Other pancytopenia; F10.139 Alcohol abuse with withdrawal, unspecified; G25.82 Stiff-man syndrome; K76.0 Fatty (change of) liver, not elsewhere classified; E83.39 Other disorders of phosphorus metabolism; E83.42 Hypomagnesemia; I10 Essential (primary) hypertension; F32.A Depression, unspecified; R53.1 Weakness; E87.6 Hypokalemia; G62.9 Polyneuropathy, unspecified; E66.9 Obesity, unspecified; F41.9 Anxiety disorder, unspecified; D69.59 Other secondary thrombocytopenia; Z66 Do not resuscitate; K81.1 Chronic cholecystitis; Z68.35 Body mass index [BMI] 35.0-35.9, adult; Z79.899 Other long term (current) drug therapy; Z87.891 Personal history of nicotine dependence; Z91.51 Personal history of suicidal behavior
CPT/HCPCS: 71046; 76700; 80053; 80143; 80179; 80306; 80307; 81003; 81015; 82010; 82077; 82248; 82607; 82728; 82746; 82977; 83540; 83550; 83690; 83735; 84100; 85025; 85610; 87040; 87086; 93005; 96365; 96366; 96375; 97162; 99285

== ENCOUNTER → 2025-03-01 16:11 | Outpatient (REF) | payer MEDICARE, SELFPAY ==
[2025-03-01 17:30] LABS: INR 1.20; PT 15.7 Sec (11.4-14.6)
[2025-03-01 17:31] LABS: APTT 27.7 Sec (23.4-35.0)
[2025-03-01 17:48] LABS: ALT (SGPT) 276 U/L (0-50); AST (SGOT) 143 U/L (17-59); Albumin 4.2 g/dl (3.5-5.0); Alkaline Phosphatase 209 U/L (38-126); Blood Urea Nitrogen 12 mg/dl (9-20); Calcium 9.3 mg/dl (8.4-10.2); Carbon Dioxide 26 mmol/L (22-30); Chloride 103 mmol/L (98-107); Glucose 113 mg/dl (70-99); Potassium 3.9 mmol/L (3.5-5.1); Sodium 137 mmol/L (135-145); Total Protein 7.8 g/dl (6.3-8.2); eGFR > 60.00
[2025-03-01 17:49] LABS: Hematocrit 34.0 % (39.0-52.0); Hemoglobin 10.7 g/dL (13.0-18.0); Mean Corp Hgb Conc. 31.5 g/dL (33.0-37.0); Mean Corpuscular Volume 107.6 fL (80.0-94.0); Nucleated Red Blood Cells % 0 % (-); Platelet Count 156 10^3/uL (130-400); Red Cell Dist. Width 26.5 % (11.5-14.5)
[2025-03-01 18:43] LABS: Anisocytosis 2+; Hypochromasia 1+; Macrocytosis 2+; Normal RBC Morphology No; Stomatocytes 3+
== END ==
LOC: REG 16:11
PROVIDERS: ATTENDING PHYSICIAN Internal Medicine
DX: K70.10 Alcoholic hepatitis without ascites (principal)
CPT/HCPCS: 36415; 80053; 85025; 85610; 85730

== ENCOUNTER → 2025-05-02 12:09 | Outpatient (REF) | payer MEDICARE, SELFPAY ==
[2025-05-02 14:16] LABS: Hematocrit 38.6 % (39.0-52.0); Hemoglobin 12.9 g/dL (13.0-18.0); Mean Corp Hgb Conc. 33.4 g/dL (33.0-37.0); Mean Corpuscular Volume 97.0 fL (80.0-94.0); Nucleated Red Blood Cells % 0 % (-); Platelet Count 134 10^3/uL (130-400); Red Cell Dist. Width 18.6 % (11.5-14.5)
[2025-05-02 14:21] LABS: APTT 26.3 Sec (23.4-35.0); INR 1.16; PT 14.6 Sec (11.4-14.6)
[2025-05-02 16:16] LABS: ALT (SGPT) 76 U/L (0-50); AST (SGOT) 37 U/L (17-59); Albumin 4.5 g/dl (3.5-5.0); Alkaline Phosphatase 80 U/L (38-126); Blood Urea Nitrogen 12 mg/dl (9-20); Calcium 9.5 mg/dl (8.4-10.2); Carbon Dioxide 24 mmol/L (22-30); Chloride 102 mmol/L (98-107); Glucose 85 mg/dl (70-99); Potassium 4.0 mmol/L (3.5-5.1); Sodium 135 mmol/L (135-145); Total Protein 8.8 g/dl (6.3-8.2); eGFR > 60.00
[2025-05-03 19:04] LABS: AFP Male/Tumor Marker 3.26 ng/ml
== END ==
LOC: REG 12:09
PROVIDERS: ATTENDING PHYSICIAN Internal Medicine; FAMILY PHYSICIAN Psychiatry & Neurology Neurology
DX: K70.10 Alcoholic hepatitis without ascites (principal); G25.82 Stiff-man syndrome; F32.A Depression, unspecified
CPT/HCPCS: 36415; 80053; 82105; 85025; 85610; 85730